=== PATIENT | female | born 1945 | race Caucasian/White ===

== ENCOUNTER 2017-04-23 22:59 | Emergency (ER) | payer MEDICARE, MEDICAID ==
[~2017-04-23] VITALS: Ht 154.9 cm; Wt 45.5 kg
[~2017-04-23 22:59] MED LIST: HALO10 PO
[2017-04-23 23:17] LABS: GLUCOSE,POINT OF CARE 91 MG/DL (70-110)
[2017-04-23 23:48] LABS: BASOPHILS % (AUTO) 0.6 % (0.0-2.0); EOSINOPHILS % (AUTO) 0 % (1.0-6.0); HEMATOCRIT 34.7 % (36-46); HEMOGLOBIN 11.2 g/dL (12.0-16.0); LYMPHOCYTES # (AUTO) 1.5 K/uL (1.0-4.8); MEAN CORPUSCULAR HEMOGLOBIN 24.1 pg (26.0-34.0); MEAN CORPUSCULAR HGB CONC 32.4 G/dL (31.0-37.0); MEAN CORPUSCULAR VOLUME 74 fL (80-100); MONOCYTES # (AUTO) 0.5 K/uL (0.1-1.0); NEUTROPHILS # (AUTO) 11.6 K/uL (1.8-7.7); NEUTROPHILS % (AUTO) 84.4 % (40.0-70.0); PLATELET COUNT (AUTO) 405 K/uL (150-450); RED BLOOD CELL COUNT(AUTO) 4.67 MIL/uL (4.00-5.20); RED CELL DISTRIBUTION WIDTH 26.2 % (11.5-14.5); WHITE BLOOD COUNT (AUTO) 13.8 K/uL (4.5-11.0)
[2017-04-23 23:50] LABS: ANION GAP 8 mmol/L (8-16); CALCIUM, TOTAL 9.1 mg/dL (8.8-10.5); CARBON DIOXIDE 30 mmol/L (22-29); CHLORIDE 103 mmol/L (98-107); CREATININE 0.77 mg/dL (0.60-1.30); GLOMERULAR FILTR. RATE CALC > 60 mL/min (>60); POTASSIUM 3.3 mmol/L (3.5-5.1); SODIUM SERUM 141 mmol/L (136-145); UREA NITROGEN, BLOOD 13 mg/dL (7-18)
[2017-04-24] MEDS ORDERED: ONDANSETRON HCL 4 MG/2 ML VIAL IVP ONE
[2017-04-24] MEDS ORDERED: SODIUM CHLORIDE 0.9% 1,000 ML IV ONE
[2017-04-24] MEDS ORDERED: MAG HYDROX/AL HYDROX/SIMETH ES 30 ML SUSPENSION UDCUP PO ONE
[2017-04-24] MEDS ORDERED: ACETAMINOPHEN 500 MG TABLET PO ONE
[2017-04-24 00:15] LABS: ALANINE AMINOTRANSFERASE 27 U/L (12-78); ALBUMIN 3.7 g/dL (3.4-5.0); ASPARTATE AMINOTRANSFERASE 25 U/L (15-37); BILIRUBIN,TOTAL 0.7 mg/dL (0.1-1.0); CREATINE KINASE MB 4.5 ng/mL (0-5); CREATINE KINASE, TOTAL 134 U/L (26-192); TOTAL PROTEIN, SERUM 7.3 g/dL (6.4-8.2)
[2017-04-24 00:20] LABS: B-TYPE NATRIURETIC PEPTIDE 60 pg/mL (0-100)
[2017-04-24 01:21] LABS: RBC MORPHOLOGY COMMENT ABNORMAL RBC MORPH
[2017-04-24 02:49] VITALS: BP 101/62
== END 2017-04-24 02:54 | disposition home or self-care (01) ==
LOC: EMS 23:01
DX: T62.8X1A Toxic effect of other specified noxious substances eaten as food, accidental (unintentional), initial encounter (principal); K29.70 Gastritis, unspecified, without bleeding; F20.0 Paranoid schizophrenia; F31.9 Bipolar disorder, unspecified; F17.210 Nicotine dependence, cigarettes, uncomplicated; Z88.0 Allergy status to penicillin; Z88.7 Allergy status to serum and vaccine; Y92.89 Other specified places as the place of occurrence of the external cause
CPT/HCPCS: 36415; 80053; 82550; 82553; 82962; 83690; 83880; 84484; 85025; 93005; 96361; 96374; 99285; 99406; J2405; J7030

== ENCOUNTER 2018-04-13 09:55 | Emergency (ER) | payer MEDICARE, MEDICAID ==
[~2018-04-13] VITALS: Ht 160 cm; Wt 45.5 kg
[2018-04-13 10:24] LABS: GLUCOSE,POINT OF CARE 148 MG/DL (70-110)
[2018-04-13] MEDS ORDERED: SODIUM CHLORIDE 0.9% 1,000 ML IV ONE (11:15)
[2018-04-13] MEDS ORDERED: DIPHENOXYLATE/ATROP 2.5-0.025 MG TABLET PO ONE (11:15)
[2018-04-13] MEDS ORDERED: ONDANSETRON HCL 4 MG/2 ML VIAL IVP ONE ×2 (11:15→14:30)
[2018-04-13] MEDS ORDERED: CIPROFLOXACIN HCL 250 MG TABLET PO ONE (11:15)
[2018-04-13 12:02] LABS: BASOPHILS % (AUTO) 0.4 % (0.0-2.0); EOSINOPHILS % (AUTO) 0 % (1.0-6.0); HEMATOCRIT 30.3 % (36-46); HEMOGLOBIN 9.1 g/dL (12.0-16.0); LYMPHOCYTES # (AUTO) 1.4 K/uL (1.0-4.8); LYMPHOCYTES % (AUTO) 6.9 % (22.0-44.0); MEAN CORPUSCULAR HEMOGLOBIN 19.4 pg (26.0-34.0); MEAN CORPUSCULAR HGB CONC 29.9 G/dL (31.0-37.0); MEAN CORPUSCULAR VOLUME 65 fL (80-100); MONOCYTES # (AUTO) 1.5 K/uL (0.1-1.0); MONOCYTES % (AUTO) 7.4 % (2.0-9.0); NEUTROPHILS # (AUTO) 16.9 K/uL (1.8-7.7); PLATELET COUNT (AUTO) 586 K/uL (150-450); RED BLOOD CELL COUNT(AUTO) 4.67 MIL/uL (4.00-5.20); RED CELL DISTRIBUTION WIDTH 18.4 % (11.5-14.5)
[2018-04-13 12:05] LABS: NEUTROPHILS % (AUTO) 85.3 % (40.0-70.0)
[2018-04-13 12:28] LABS: ANION GAP 10 mmol/L (8-16); CALCIUM, TOTAL 9.1 mg/dL (8.8-10.5); CARBON DIOXIDE 28 mmol/L (22-29); CHLORIDE 97 mmol/L (98-107); CREATININE 0.75 mg/dL (0.60-1.30); GLOMERULAR FILTR. RATE CALC > 60 mL/min (>60); GLUCOSE,RANDOM 119 mg/dL (70-110); POTASSIUM 3.4 mmol/L (3.5-5.1); SODIUM SERUM 135 mmol/L (136-145); UREA NITROGEN, BLOOD 21 mg/dL (7-18)
[2018-04-13 12:34] LABS: ALANINE AMINOTRANSFERASE 12 U/L (12-78); ALBUMIN 3.4 g/dL (3.4-5.0); ALKALINE PHOSPHATASE 86 U/L (46-116); ASPARTATE AMINOTRANSFERASE 13 U/L (15-37); B-TYPE NATRIURETIC PEPTIDE 228 pg/mL (0-100); BILIRUBIN,TOTAL 0.5 mg/dL (0.1-1.0); CREATINE KINASE, TOTAL 27 U/L (26-192); LIPASE 143 U/L (73-393); TOTAL PROTEIN, SERUM 8.1 g/dL (6.4-8.2)
[2018-04-13] MEDS ORDERED: SODIUM CHLORIDE 0.9% 100 ML ONE (13:02)
[2018-04-13] MEDS ORDERED: IOVERSOL 320 MG/ML 100 ML VIAL ONE (13:02)
[2018-04-13] MEDS ORDERED: LORazepam 2 MG/ML VIAL IVP ONE (14:30)
[2018-04-13] MEDS ORDERED: MORPHINE SULFATE 4 MG/ML SYRINGE IVP ONE (14:30)
[2018-04-13 19:33] VITALS: BP 118/60
== END 2018-04-13 20:02 | disposition left against medical advice (07) ==
LOC: EMS 09:59
DX: R10.13 Epigastric pain (principal); F31.9 Bipolar disorder, unspecified; F20.9 Schizophrenia, unspecified; H91.90 Unspecified hearing loss, unspecified ear; F17.210 Nicotine dependence, cigarettes, uncomplicated; Z88.0 Allergy status to penicillin; Z88.8 Allergy status to other drugs, medicaments and biological substances; Z79.899 Other long term (current) drug therapy
CPT/HCPCS: 76705; 80053; 82550; 82962; 83690; 83880; 84484; 85025; 93005; 96374; 96375; 96376; 99285; J2060; J2270; J2405; J7030; J7050; Q9967

== ENCOUNTER 2018-04-23 11:32 | Emergency (ER) | payer MEDICARE, MEDICAID ==
[~2018-04-23] VITALS: Ht 165.1 cm; Wt 54.5 kg
[2018-04-23 13:26] LABS: BASOPHILS % (AUTO) 0.7 % (0.0-2.0); EOSINOPHILS % (AUTO) 1.2 % (1.0-6.0); HEMATOCRIT 28.5 % (36-46); HEMOGLOBIN 8.6 g/dL (12.0-16.0); LYMPHOCYTES # (AUTO) 2.5 K/uL (1.0-4.8); LYMPHOCYTES % (AUTO) 21.2 % (22.0-44.0); MEAN CORPUSCULAR HEMOGLOBIN 20.1 pg (26.0-34.0); MEAN CORPUSCULAR HGB CONC 30.2 G/dL (31.0-37.0); MEAN CORPUSCULAR VOLUME 67 fL (80-100); MONOCYTES # (AUTO) 1.1 K/uL (0.1-1.0); MONOCYTES % (AUTO) 9.2 % (2.0-9.0); NEUTROPHILS # (AUTO) 7.8 K/uL (1.8-7.7); NEUTROPHILS % (AUTO) 67.7 % (40.0-70.0); PLATELET COUNT (AUTO) 534 K/uL (150-450); RED BLOOD CELL COUNT(AUTO) 4.29 MIL/uL (4.00-5.20); RED CELL DISTRIBUTION WIDTH 17.9 % (11.5-14.5)
[2018-04-23 13:37] LABS: ANION GAP 6 mmol/L (8-16); CALCIUM, TOTAL 8.6 mg/dL (8.8-10.5); CARBON DIOXIDE 29 mmol/L (22-29); CHLORIDE 106 mmol/L (98-107); CREATININE 0.62 mg/dL (0.60-1.30); GLOMERULAR FILTR. RATE CALC > 60 mL/min (>60); GLUCOSE,RANDOM 95 mg/dL (70-110); POTASSIUM 3.2 mmol/L (3.5-5.1); SODIUM SERUM 141 mmol/L (136-145); UREA NITROGEN, BLOOD 8 mg/dL (7-18)
[2018-04-23 13:40] LABS: PLATELET MORPHOLOGY COMMENT LARGE PLTS PRESENT
[2018-04-23 13:43] LABS: ALANINE AMINOTRANSFERASE 13 U/L (12-78); ALBUMIN 2.6 g/dL (3.4-5.0); ALKALINE PHOSPHATASE 86 U/L (46-116); ASPARTATE AMINOTRANSFERASE 14 U/L (15-37); BILIRUBIN,TOTAL 0.2 mg/dL (0.1-1.0); LIPASE 249 U/L (73-393); TOTAL PROTEIN, SERUM 6.6 g/dL (6.4-8.2)
[2018-04-23] MEDS ORDERED: POTASSIUM CHLORIDE 20 MEQ ER TABLET PO ONE (15:15)
[2018-04-23 16:00] VITALS: BP 139/73
== END 2018-04-23 16:19 | disposition home or self-care (01) ==
LOC: EMS 11:33
DX: F20.9 Schizophrenia, unspecified (principal); E87.6 Hypokalemia; R10.84 Generalized abdominal pain; F31.9 Bipolar disorder, unspecified; F41.9 Anxiety disorder, unspecified; F17.210 Nicotine dependence, cigarettes, uncomplicated; Z88.0 Allergy status to penicillin; Z88.8 Allergy status to other drugs, medicaments and biological substances
CPT/HCPCS: 36415; 80053; 83690; 84484; 85025; 93005; 99285; 99406; G0480

== ENCOUNTER 2018-05-10 22:34 | Emergency (ER) | payer MEDICARE, MEDICAID ==
[~2018-05-10] VITALS: Ht 165.1 cm; Wt 54.2 kg
[2018-05-10 23:58] VITALS: BP 134/66
== END 2018-05-11 00:29 | disposition home or self-care (01) ==
LOC: EMS 22:35
DX: F31.9 Bipolar disorder, unspecified (principal); F20.9 Schizophrenia, unspecified; F17.210 Nicotine dependence, cigarettes, uncomplicated; Z88.7 Allergy status to serum and vaccine; Z88.0 Allergy status to penicillin; Z91.14 Patient's other noncompliance with medication regimen
CPT/HCPCS: 99284

== ENCOUNTER 2018-07-13 20:27 | Inpatient (IN) | payer MEDICARE, MEDICAID ==
[~2018-07-13] VITALS: Ht 157.5 cm; Wt 49.0 kg
[2018-07-13 21:29] LABS: GLUCOSE,POINT OF CARE 123 MG/DL (70-110)
[2018-07-13 21:35] LABS: BASOPHILS % (AUTO) 1.2 % (0.0-2.0); EOSINOPHILS % (AUTO) 0.8 % (1.0-6.0); HEMATOCRIT 27.3 % (36-46); HEMOGLOBIN 8.4 g/dL (12.0-16.0); LYMPHOCYTES # (AUTO) 2.4 K/uL (1.0-4.8); LYMPHOCYTES % (AUTO) 17.7 % (22.0-44.0); MEAN CORPUSCULAR HEMOGLOBIN 21.1 pg (26.0-34.0); MEAN CORPUSCULAR HGB CONC 30.8 G/dL (31.0-37.0); MEAN CORPUSCULAR VOLUME 69 fL (80-100); MONOCYTES # (AUTO) 0.9 K/uL (0.1-1.0); NEUTROPHILS # (AUTO) 9.9 K/uL (1.8-7.7); NEUTROPHILS % (AUTO) 73.3 % (40.0-70.0); PLATELET COUNT (AUTO) 585 K/uL (150-450); RED BLOOD CELL COUNT(AUTO) 3.97 MIL/uL (4.00-5.20); RED CELL DISTRIBUTION WIDTH 22.4 % (11.5-14.5)
[2018-07-13 21:56] LABS: ANION GAP 7 mmol/L (8-16); CALCIUM, TOTAL 8.1 mg/dL (8.8-10.5); CARBON DIOXIDE 30 mmol/L (22-29); CHLORIDE 102 mmol/L (98-107); GLUCOSE,RANDOM 126 mg/dL (70-110); POTASSIUM 3.1 mmol/L (3.5-5.1); SODIUM SERUM 139 mmol/L (136-145); UREA NITROGEN, BLOOD 15 mg/dL (7-18)
[2018-07-13 21:58] LABS: GLOMERULAR FILTR. RATE CALC > 60 mL/min (>60)
[2018-07-13 22:02] LABS: ALANINE AMINOTRANSFERASE 16 U/L (12-78); ALBUMIN 2.8 g/dL (3.4-5.0); ALKALINE PHOSPHATASE 101 U/L (46-116); ASPARTATE AMINOTRANSFERASE 16 U/L (15-37); BILIRUBIN,TOTAL 0.1 mg/dL (0.1-1.0); TOTAL PROTEIN, SERUM 6.6 g/dL (6.4-8.2)
[2018-07-13] MEDS ORDERED: HALOPERIDOL LACTATE 5 MG/ML VIAL IM ONE (22:45)
[2018-07-13] MEDS ORDERED: LORazepam 2 MG/ML VIAL IM ONE (22:45)
[2018-07-13] MEDS ORDERED: POTASSIUM CHLORIDE 20 MEQ ER TABLET PO ONE (23:00)
[2018-07-14 09:14] VITALS: BP 115/60
[2018-07-14] MEDS ORDERED: ALBUTEROL SULFATE HFA 90 MCG/PUFF 8 GM INHALER IH PRN (10:30)
[2018-07-14] MEDS ORDERED: IBUPROFEN 400 MG TABLET PO PRN ×2 (10:30)
[2018-07-14] MEDS ORDERED: MAG HYDROX/AL HYDROX/SIMETH ES 30 ML SUSPENSION UDCUP PO PRN (10:30)
[2018-07-14] MEDS ORDERED: GuaiFENesin/D-METHORPHAN [SUGAR-FREE] 200-20MG/10 ML SYRUP UDCUP PO PRN (10:30)
[2018-07-14] MEDS ORDERED: PETROLATUM,WHITE 71 GM JELLY TP PRN (10:30)
[2018-07-14] MEDS ORDERED: DOCUSATE SODIUM 100 MG CAPSULE PO PRN (10:30)
[2018-07-14] MEDS ORDERED: NICOTINE 14 MG/24 HOUR PATCH TD PRN (10:30)
[2018-07-14] MEDS ORDERED: CloNIDine HCL 0.1 MG TABLET PO PRN (10:30)
[2018-07-14] MEDS ORDERED: ONDANSETRON HCL 4 MG TABLET PO PRN (10:30)
[2018-07-14] MEDS ORDERED: LOPERAMIDE HCL 2 MG CAPSULE PO PRN (10:30)
[2018-07-14] MEDS ORDERED: ACETAMINOPHEN 325 MG TABLET PO PRN ×2 (10:30)
[2018-07-14] MEDS ORDERED: MAGNESIUM HYDROXIDE SUSPENSION 30 ML UDCUP PO PRN (10:30)
[2018-07-14] MEDS: FERROUS SULFATE 325 MG EC TABLET PO SCH ×3 (12:00→17:00)
[2018-07-14] MEDS: DULoxetine HCL 60 MG CAPSULE PO SCH ×2 (12:15→12:25)
[2018-07-14] MEDS: TRIHEXYPHENIDYL HCL 2 MG TABLET PO SCH ×2 (13:00→17:00)
[2018-07-14] MEDS ORDERED: FERR-89 PO (14:08)
[2018-07-14] MEDS ORDERED: MAG360OR93 PO (14:08)
[2018-07-14] MEDS ORDERED: ONDA4 PO (14:08)
[2018-07-14] MEDS ORDERED: ACET-2247 PO (14:08)
[2018-07-14] MEDS ORDERED: [UNRECOGNIZED DRUG - CODE] PO (14:08)
[2018-07-14] MEDS ORDERED: LOPE2 PO (14:08)
[2018-07-14] MEDS ORDERED: DULO60CA44 PO (14:08)
[2018-07-14] MEDS ORDERED: LORA2TAB2 PO (14:08)
[2018-07-14] MEDS ORDERED: IBUP-1506 PO (14:08)
[2018-07-14] MEDS ORDERED: HALO5TAB2 PO ×2 (14:08)
[2018-07-14] MEDS ORDERED: CLON0.1T PO (14:08)
[2018-07-14] MEDS ORDERED: ALBU8HFA IH (14:08)
[2018-07-14] MEDS ORDERED: MOM30 PO (14:08)
[2018-07-14] MEDS ORDERED: ZOLP10TA7 PO (14:08)
[2018-07-14] MEDS ORDERED: TRIH2TAB3 PO (14:08)
[2018-07-14] MEDS ORDERED: DSS100 PO (14:08)
[2018-07-14 18:05] VITALS: BP 114/66
[2018-07-14] MEDS: HALOPERIDOL 5 MG TABLET PO SCH (21:17)
[2018-07-15] MEDS: FERROUS SULFATE 325 MG EC TABLET PO SCH ×3 (06:58→16:51)
[2018-07-15] MEDS: TRIHEXYPHENIDYL HCL 2 MG TABLET PO SCH ×3 (08:50→16:51)
[2018-07-15] MEDS: DULoxetine HCL 60 MG CAPSULE PO SCH (08:50)
[2018-07-15] MEDS: HALOPERIDOL 5 MG TABLET PO PRN (08:50)
[2018-07-15] MEDS: LORazepam 2 MG TABLET PO PRN (08:50)
[2018-07-15 13:45] VITALS: BP 110/60
[2018-07-15 19:22] VITALS: BP 117/62
[2018-07-15] MEDS: HALOPERIDOL 5 MG TABLET PO SCH (20:36)
[2018-07-16] MEDS: ZOLPIDEM TARTRATE 10 MG TABLET PO PRN (00:51)
[2018-07-16 01:30] VITALS: BP 115/63
[2018-07-16] MEDS: FERROUS SULFATE 325 MG EC TABLET PO SCH ×3 (06:57→17:09)
[2018-07-16] MEDS: TRIHEXYPHENIDYL HCL 2 MG TABLET PO SCH ×3 (08:25→17:09)
[2018-07-16] MEDS: DULoxetine HCL 60 MG CAPSULE PO SCH (08:25)
[2018-07-16] MEDS: LORazepam 2 MG TABLET PO PRN ×2 (08:26→19:54)
[2018-07-16] MEDS: HALOPERIDOL 5 MG TABLET PO PRN (08:26)
[2018-07-16] MEDS ORDERED: LORazepam 2 MG/ML VIAL IM ONE (11:15)
[2018-07-16 11:51] VITALS: BP 116/69
[2018-07-16] MEDS ORDERED: EUCALYPTUS OIL/MENTHOL/CAMPHOR 50 GM OINTMENT TP PRN (13:45)
[2018-07-16 16:32] VITALS: BP 111/61
[2018-07-16] MEDS: AZITHROMYCIN 250 MG TABLET PO SCH (17:09)
[2018-07-17 06:41] VITALS: BP 116/67
[2018-07-17] MEDS: FERROUS SULFATE 325 MG EC TABLET PO SCH ×3 (06:58→17:10)
[2018-07-17 08:15] LABS: BASOPHILS % (AUTO) 0.7 % (0.0-2.0); EOSINOPHILS % (AUTO) 0.1 % (1.0-6.0); HEMATOCRIT 27.6 % (36-46); HEMOGLOBIN 8.6 g/dL (12.0-16.0); LYMPHOCYTES # (AUTO) 1.1 K/uL (1.0-4.8); LYMPHOCYTES % (AUTO) 9.8 % (22.0-44.0); MEAN CORPUSCULAR HEMOGLOBIN 21.4 pg (26.0-34.0); MEAN CORPUSCULAR HGB CONC 31.1 G/dL (31.0-37.0); MEAN CORPUSCULAR VOLUME 69 fL (80-100); MONOCYTES # (AUTO) 0.8 K/uL (0.1-1.0); MONOCYTES % (AUTO) 7.3 % (2.0-9.0); NEUTROPHILS # (AUTO) 9.3 K/uL (1.8-7.7); NEUTROPHILS % (AUTO) 82.1 % (40.0-70.0); PLATELET COUNT (AUTO) 511 K/uL (150-450); RED CELL DISTRIBUTION WIDTH 22.3 % (11.5-14.5)
[2018-07-17 08:26] LABS: HEMOGLOBIN A1C 5.5 % (4.5-6.2)
[2018-07-17 08:39] LABS: CHOL/HDL RATIO 3.1 (3.9-5.7); POTASSIUM 4.9 mmol/L (3.5-5.1); THYROID STIMULATING HORMONE 2.22 uIU/mL (0.36-3.74)
[2018-07-17] MEDS: DULoxetine HCL 60 MG CAPSULE PO SCH (10:01)
[2018-07-17] MEDS: TRIHEXYPHENIDYL HCL 2 MG TABLET PO SCH ×3 (10:01→17:10)
[2018-07-17] MEDS: AZITHROMYCIN 250 MG TABLET PO SCH (10:02)
[2018-07-17] MEDS: LORazepam 2 MG TABLET PO PRN (13:16)
[2018-07-17 16:01] VITALS: BP 126/60
[2018-07-17] MEDS: FLUTICASONE PROPIONATE 50 MCG/SPRAY 16 GM NASAL SPRAY NASAL PRN (21:37)
[2018-07-17] MEDS: ZOLPIDEM TARTRATE 10 MG TABLET PO PRN (21:38)
[2018-07-18] MEDS: FERROUS SULFATE 325 MG EC TABLET PO SCH ×3 (06:33→17:12)
[2018-07-18 08:00] VITALS: BP 101/63
[2018-07-18] MEDS: AZITHROMYCIN 250 MG TABLET PO SCH (08:30)
[2018-07-18] MEDS: HALOPERIDOL 5 MG TABLET PO PRN (08:30)
[2018-07-18] MEDS: LORazepam 2 MG TABLET PO PRN ×2 (08:30→21:06)
[2018-07-18] MEDS: TRIHEXYPHENIDYL HCL 2 MG TABLET PO SCH ×3 (08:30→17:12)
[2018-07-18] MEDS: DULoxetine HCL 60 MG CAPSULE PO SCH (08:31)
[2018-07-18] MEDS: LORATADINE 10 MG TABLET PO SCH (08:31)
[2018-07-19] MEDS: FERROUS SULFATE 325 MG EC TABLET PO SCH ×3 (07:02→16:55)
[2018-07-19 07:32] VITALS: BP 103/62
[2018-07-19] MEDS: TRIHEXYPHENIDYL HCL 2 MG TABLET PO SCH ×3 (08:49→16:55)
[2018-07-19] MEDS: AZITHROMYCIN 250 MG TABLET PO SCH (08:50)
[2018-07-19] MEDS: LORATADINE 10 MG TABLET PO SCH (08:50)
[2018-07-19] MEDS: DULoxetine HCL 60 MG CAPSULE PO SCH (08:50)
[2018-07-19 10:26] VITALS: BP 108/64
[2018-07-19 16:08] VITALS: BP 125/67
[2018-07-19] MEDS: LORazepam 2 MG TABLET PO PRN (16:55)
[2018-07-19] MEDS: ZOLPIDEM TARTRATE 10 MG TABLET PO PRN (21:23)
[2018-07-20] MEDS: FERROUS SULFATE 325 MG EC TABLET PO SCH ×3 (06:26→16:27)
[2018-07-20 07:19] VITALS: BP 118/62
[2018-07-20] MEDS: AZITHROMYCIN 250 MG TABLET PO SCH (09:10)
[2018-07-20] MEDS: DULoxetine HCL 60 MG CAPSULE PO SCH (09:11)
[2018-07-20] MEDS: LORATADINE 10 MG TABLET PO SCH (09:11)
[2018-07-20] MEDS: TRIHEXYPHENIDYL HCL 2 MG TABLET PO SCH ×3 (09:48→16:27)
[2018-07-20] MEDS: GuaiFENesin/D-METHORPHAN/PHENYLEPH 5 ML LIQUID ORAL.SYG PO PRN (10:00)
[2018-07-20 16:21] VITALS: BP 109/66
[2018-07-20] MEDS: LORazepam 1 MG TABLET PO SCH (16:28)
[2018-07-20] MEDS: HALOPERIDOL 5 MG TABLET PO PRN (16:28)
[2018-07-20] MEDS: ZOLPIDEM TARTRATE 10 MG TABLET PO PRN (21:11)
[2018-07-21 06:20] VITALS: BP 112/65
[2018-07-21] MEDS: FERROUS SULFATE 325 MG EC TABLET PO SCH ×3 (06:40→17:18)
[2018-07-21] MEDS: LORATADINE 10 MG TABLET PO SCH (08:12)
[2018-07-21] MEDS: LORazepam 1 MG TABLET PO SCH ×2 (08:12→17:18)
[2018-07-21] MEDS: AZITHROMYCIN 250 MG TABLET PO SCH (08:12)
[2018-07-21] MEDS: TRIHEXYPHENIDYL HCL 2 MG TABLET PO SCH ×3 (08:12→17:18)
[2018-07-21] MEDS: DULoxetine HCL 60 MG CAPSULE PO SCH (08:12)
[2018-07-21] MEDS: GuaiFENesin/D-METHORPHAN/PHENYLEPH 5 ML LIQUID ORAL.SYG PO PRN (08:25)
[2018-07-21 08:32] VITALS: BP 115/61
[2018-07-21] MEDS: FLUTICASONE PROPIONATE 50 MCG/SPRAY 16 GM NASAL SPRAY NASAL PRN (09:58)
[2018-07-21] MEDS: CIPROFLOXACIN HCL 0.3% 3.5 GM OPHTHALMIC OINTMENT OU SCH ×2 (10:00→17:17)
[2018-07-21] MEDS ORDERED: LORATADINE 10 MG TABLET PO SCH (10:00)
[2018-07-21] MEDS: FLUTICASONE PROPIONATE 50 MCG/SPRAY 16 GM NASAL SPRAY NASAL SCH ×2 (10:19→17:17)
[2018-07-21 16:51] VITALS: BP 111/70
[2018-07-21] MEDS: ZOLPIDEM TARTRATE 10 MG TABLET PO PRN (20:46)
[2018-07-22] MEDS: FERROUS SULFATE 325 MG EC TABLET PO SCH ×3 (06:44→16:45)
[2018-07-22 06:50] VITALS: BP 104/68
[2018-07-22 08:40] VITALS: BP 127/69
[2018-07-22] MEDS: FLUTICASONE PROPIONATE 50 MCG/SPRAY 16 GM NASAL SPRAY NASAL SCH ×2 (09:20→16:45)
[2018-07-22] MEDS: CIPROFLOXACIN HCL 0.3% 3.5 GM OPHTHALMIC OINTMENT OU SCH ×2 (09:20→16:45)
[2018-07-22] MEDS: LORazepam 1 MG TABLET PO SCH ×2 (09:20→16:45)
[2018-07-22] MEDS: DULoxetine HCL 60 MG CAPSULE PO SCH (09:20)
[2018-07-22] MEDS: LORATADINE 10 MG TABLET PO SCH (09:20)
[2018-07-22] MEDS: TRIHEXYPHENIDYL HCL 2 MG TABLET PO SCH ×3 (09:20→16:45)
[2018-07-22] MEDS: HALOPERIDOL 5 MG TABLET PO PRN ×2 (09:21→16:45)
[2018-07-22 16:00] VITALS: BP 111/65
[2018-07-23 01:30] VITALS: BP 118/72
[2018-07-23] MEDS: LORazepam 2 MG TABLET PO PRN (01:38)
[2018-07-23] MEDS: FERROUS SULFATE 325 MG EC TABLET PO SCH ×3 (07:09→16:49)
[2018-07-23 08:01] VITALS: BP 116/70
[2018-07-23] MEDS: DULoxetine HCL 60 MG CAPSULE PO SCH (08:35)
[2018-07-23] MEDS: TRIHEXYPHENIDYL HCL 2 MG TABLET PO SCH ×3 (08:35→16:49)
[2018-07-23] MEDS: FLUTICASONE PROPIONATE 50 MCG/SPRAY 16 GM NASAL SPRAY NASAL SCH ×2 (08:35→16:51)
[2018-07-23] MEDS: CIPROFLOXACIN HCL 0.3% 3.5 GM OPHTHALMIC OINTMENT OU SCH ×2 (08:36→16:51)
[2018-07-23] MEDS: LORazepam 1 MG TABLET PO SCH ×2 (08:36→16:49)
[2018-07-23] MEDS: LORATADINE 10 MG TABLET PO SCH (08:36)
[2018-07-23 16:14] VITALS: BP 117/73
[2018-07-24 05:14] VITALS: BP 98/62
[2018-07-24] MEDS: FERROUS SULFATE 325 MG EC TABLET PO SCH ×3 (07:10→16:24)
[2018-07-24] MEDS: FLUTICASONE PROPIONATE 50 MCG/SPRAY 16 GM NASAL SPRAY NASAL SCH ×2 (09:42→16:25)
[2018-07-24] MEDS: CIPROFLOXACIN HCL 0.3% 3.5 GM OPHTHALMIC OINTMENT OU SCH ×2 (09:42→16:25)
[2018-07-24] MEDS: LORazepam 1 MG TABLET PO SCH ×2 (09:42→16:27)
[2018-07-24] MEDS: TRIHEXYPHENIDYL HCL 2 MG TABLET PO SCH ×3 (09:42→16:24)
[2018-07-24] MEDS: DULoxetine HCL 60 MG CAPSULE PO SCH (09:42)
[2018-07-24] MEDS: LORATADINE 10 MG TABLET PO SCH (09:42)
[2018-07-24 16:20] VITALS: BP 123/75
[2018-07-25 01:30] VITALS: BP 116/74
[2018-07-25] MEDS: FERROUS SULFATE 325 MG EC TABLET PO SCH ×3 (06:32→16:44)
[2018-07-25 09:08] VITALS: BP 100/62
[2018-07-25] MEDS: LORazepam 1 MG TABLET PO SCH ×2 (09:46→16:44)
[2018-07-25] MEDS: DULoxetine HCL 60 MG CAPSULE PO SCH (09:46)
[2018-07-25] MEDS: TRIHEXYPHENIDYL HCL 2 MG TABLET PO SCH ×3 (09:46→16:44)
[2018-07-25] MEDS: LORATADINE 10 MG TABLET PO SCH (09:46)
[2018-07-25] MEDS: FLUTICASONE PROPIONATE 50 MCG/SPRAY 16 GM NASAL SPRAY NASAL SCH ×2 (09:47→16:45)
[2018-07-25] MEDS: CIPROFLOXACIN HCL 0.3% 3.5 GM OPHTHALMIC OINTMENT OU SCH ×2 (09:47→16:45)
[2018-07-25 16:00] VITALS: BP 127/60
[2018-07-26 00:21] VITALS: BP 120/60
[2018-07-26] MEDS: LORazepam 2 MG TABLET PO PRN ×2 (03:53→03:56)
[2018-07-26] MEDS: FERROUS SULFATE 325 MG EC TABLET PO SCH ×3 (07:00→16:21)
[2018-07-26 08:24] VITALS: BP 114/61
[2018-07-26] MEDS: DULoxetine HCL 60 MG CAPSULE PO SCH (08:46)
[2018-07-26] MEDS: LORATADINE 10 MG TABLET PO SCH (08:46)
[2018-07-26] MEDS: FLUTICASONE PROPIONATE 50 MCG/SPRAY 16 GM NASAL SPRAY NASAL SCH ×2 (08:46→16:22)
[2018-07-26] MEDS: LORazepam 1 MG TABLET PO SCH ×2 (08:46→16:21)
[2018-07-26] MEDS: TRIHEXYPHENIDYL HCL 2 MG TABLET PO SCH ×3 (08:46→16:21)
[2018-07-26] MEDS: CIPROFLOXACIN HCL 0.3% 3.5 GM OPHTHALMIC OINTMENT OU SCH ×2 (09:00→16:22)
[2018-07-26 16:21] VITALS: BP 133/59
[2018-07-27 01:50] VITALS: BP 118/66
[2018-07-27] MEDS: LORazepam 2 MG TABLET PO PRN (02:10)
[2018-07-27] MEDS: FERROUS SULFATE 325 MG EC TABLET PO SCH ×3 (06:47→17:23)
[2018-07-27 08:33] VITALS: BP 108/65
[2018-07-27] MEDS: LORazepam 1 MG TABLET PO SCH ×2 (09:08→17:23)
[2018-07-27] MEDS: TRIHEXYPHENIDYL HCL 2 MG TABLET PO SCH ×3 (09:08→17:22)
[2018-07-27] MEDS: DULoxetine HCL 60 MG CAPSULE PO SCH (09:08)
[2018-07-27] MEDS: LORATADINE 10 MG TABLET PO SCH (09:08)
[2018-07-27] MEDS: FLUTICASONE PROPIONATE 50 MCG/SPRAY 16 GM NASAL SPRAY NASAL SCH ×2 (09:09→17:24)
[2018-07-27] MEDS: CIPROFLOXACIN HCL 0.3% 3.5 GM OPHTHALMIC OINTMENT OU SCH ×2 (09:09→17:23)
[2018-07-27 16:08] VITALS: BP 118/61
[2018-07-28 05:30] VITALS: BP 112/64
[2018-07-28] MEDS: FERROUS SULFATE 325 MG EC TABLET PO SCH ×3 (06:58→16:10)
[2018-07-28] MEDS: LORazepam 1 MG TABLET PO SCH ×2 (08:28→16:10)
[2018-07-28] MEDS: TRIHEXYPHENIDYL HCL 2 MG TABLET PO SCH ×3 (08:28→16:10)
[2018-07-28 08:29] VITALS: BP 116/70
[2018-07-28] MEDS: FLUTICASONE PROPIONATE 50 MCG/SPRAY 16 GM NASAL SPRAY NASAL SCH ×2 (08:29→16:11)
[2018-07-28] MEDS: DULoxetine HCL 60 MG CAPSULE PO SCH (08:29)
[2018-07-28] MEDS: LORATADINE 10 MG TABLET PO SCH (08:29)
[2018-07-28] MEDS: CIPROFLOXACIN HCL 0.3% 3.5 GM OPHTHALMIC OINTMENT OU SCH ×2 (08:30→16:10)
[2018-07-28 16:00] VITALS: BP 145/71
[2018-07-29 00:16] VITALS: BP 123/78
[2018-07-29] MEDS: ZOLPIDEM TARTRATE 10 MG TABLET PO PRN (00:23)
[2018-07-29] MEDS: FERROUS SULFATE 325 MG EC TABLET PO SCH ×3 (06:42→16:26)
[2018-07-29 08:22] VITALS: BP 100/42
[2018-07-29] MEDS: CIPROFLOXACIN HCL 0.3% 3.5 GM OPHTHALMIC OINTMENT OU SCH ×2 (09:52→16:26)
[2018-07-29] MEDS: DULoxetine HCL 60 MG CAPSULE PO SCH (09:52)
[2018-07-29] MEDS: FLUTICASONE PROPIONATE 50 MCG/SPRAY 16 GM NASAL SPRAY NASAL SCH ×2 (09:52→16:27)
[2018-07-29] MEDS: LORazepam 1 MG TABLET PO SCH ×2 (09:52→16:26)
[2018-07-29] MEDS: LORATADINE 10 MG TABLET PO SCH (09:52)
[2018-07-29] MEDS: TRIHEXYPHENIDYL HCL 2 MG TABLET PO SCH ×3 (09:52→16:26)
[2018-07-29 11:59] VITALS: BP 102/60
[2018-07-29] MEDS: LORazepam 2 MG TABLET PO PRN (12:13)
[2018-07-29 16:30] VITALS: BP 118/74
[2018-07-30 06:00] VITALS: BP 120/81
[2018-07-30] MEDS: FERROUS SULFATE 325 MG EC TABLET PO SCH ×3 (07:08→16:50)
[2018-07-30 08:18] VITALS: BP 105/61
[2018-07-30] MEDS: LORATADINE 10 MG TABLET PO SCH (09:19)
[2018-07-30] MEDS: DULoxetine HCL 60 MG CAPSULE PO SCH (09:19)
[2018-07-30] MEDS: LORazepam 1 MG TABLET PO SCH ×2 (09:19→16:51)
[2018-07-30] MEDS: TRIHEXYPHENIDYL HCL 2 MG TABLET PO SCH ×3 (09:19→16:51)
[2018-07-30] MEDS: FLUTICASONE PROPIONATE 50 MCG/SPRAY 16 GM NASAL SPRAY NASAL SCH ×2 (09:20→16:51)
[2018-07-30] MEDS: CIPROFLOXACIN HCL 0.3% 3.5 GM OPHTHALMIC OINTMENT OU SCH ×2 (09:20→16:51)
[2018-07-30 16:32] VITALS: BP 108/64
[2018-07-30] MEDS: LORazepam 2 MG TABLET PO PRN (19:09)
[2018-07-31] MEDS: FERROUS SULFATE 325 MG EC TABLET PO SCH ×3 (07:02→17:20)
[2018-07-31 08:15] VITALS: BP 99/63
[2018-07-31 09:40] VITALS: BP 129/82
[2018-07-31] MEDS: TRIHEXYPHENIDYL HCL 2 MG TABLET PO SCH ×3 (09:43→17:21)
[2018-07-31] MEDS: LORATADINE 10 MG TABLET PO SCH (09:43)
[2018-07-31] MEDS: LORazepam 1 MG TABLET PO SCH ×2 (09:43→17:20)
[2018-07-31] MEDS: DULoxetine HCL 60 MG CAPSULE PO SCH (09:43)
[2018-07-31] MEDS: CIPROFLOXACIN HCL 0.3% 3.5 GM OPHTHALMIC OINTMENT OU SCH (09:44)
[2018-07-31] MEDS: FLUTICASONE PROPIONATE 50 MCG/SPRAY 16 GM NASAL SPRAY NASAL SCH ×2 (09:44→17:21)
[2018-07-31 16:00] VITALS: BP 121/84
[2018-08-01 04:00] VITALS: BP 112/72
[2018-08-01] MEDS: LORazepam 2 MG TABLET PO PRN (04:13)
[2018-08-01] MEDS: FERROUS SULFATE 325 MG EC TABLET PO SCH ×3 (07:08→17:16)
[2018-08-01 08:33] VITALS: BP 113/64
[2018-08-01] MEDS: LORazepam 1 MG TABLET PO SCH ×2 (09:07→17:16)
[2018-08-01] MEDS: LORATADINE 10 MG TABLET PO SCH (09:07)
[2018-08-01] MEDS: DULoxetine HCL 60 MG CAPSULE PO SCH (09:07)
[2018-08-01] MEDS: TRIHEXYPHENIDYL HCL 2 MG TABLET PO SCH ×3 (09:07→17:16)
[2018-08-01] MEDS: FLUTICASONE PROPIONATE 50 MCG/SPRAY 16 GM NASAL SPRAY NASAL SCH ×2 (09:08→17:16)
[2018-08-01 16:19] VITALS: BP 114/66
[2018-08-02 05:55] VITALS: BP 112/70
[2018-08-02] MEDS: FERROUS SULFATE 325 MG EC TABLET PO SCH ×3 (06:41→17:17)
[2018-08-02] MEDS: LORATADINE 10 MG TABLET PO SCH (09:05)
[2018-08-02] MEDS: LORazepam 1 MG TABLET PO SCH ×2 (09:05→17:17)
[2018-08-02] MEDS: TRIHEXYPHENIDYL HCL 2 MG TABLET PO SCH ×3 (09:05→17:17)
[2018-08-02] MEDS: FLUTICASONE PROPIONATE 50 MCG/SPRAY 16 GM NASAL SPRAY NASAL SCH ×2 (09:05→17:18)
[2018-08-02] MEDS: DULoxetine HCL 60 MG CAPSULE PO SCH (09:05)
[2018-08-02 09:29] VITALS: BP 124/63
[2018-08-02 16:21] VITALS: BP 121/64
[2018-08-02] MEDS: HYPROMELLOSE 0.5% 15 ML OPHTHALMIC SOLUTION OU SCH (17:18)
[2018-08-03] MEDS: FERROUS SULFATE 325 MG EC TABLET PO SCH ×3 (06:21→16:20)
[2018-08-03 08:45] VITALS: BP 123/66
[2018-08-03] MEDS: TRIHEXYPHENIDYL HCL 2 MG TABLET PO SCH ×3 (08:49→16:20)
[2018-08-03] MEDS: HYPROMELLOSE 0.5% 15 ML OPHTHALMIC SOLUTION OU SCH ×2 (08:49→16:20)
[2018-08-03] MEDS: DULoxetine HCL 60 MG CAPSULE PO SCH (08:49)
[2018-08-03] MEDS: FLUTICASONE PROPIONATE 50 MCG/SPRAY 16 GM NASAL SPRAY NASAL SCH ×2 (08:49→16:20)
[2018-08-03] MEDS: LORazepam 1 MG TABLET PO SCH ×2 (08:50→16:20)
[2018-08-03] MEDS: LORATADINE 10 MG TABLET PO SCH (08:50)
[2018-08-03 16:21] VITALS: BP 134/62
[2018-08-04 02:51] VITALS: BP 122/74
[2018-08-04] MEDS: FERROUS SULFATE 325 MG EC TABLET PO SCH ×3 (06:32→16:00)
[2018-08-04] MEDS: FLUTICASONE PROPIONATE 50 MCG/SPRAY 16 GM NASAL SPRAY NASAL SCH ×2 (08:08→16:01)
[2018-08-04] MEDS: DULoxetine HCL 60 MG CAPSULE PO SCH (08:09)
[2018-08-04] MEDS: TRIHEXYPHENIDYL HCL 2 MG TABLET PO SCH ×3 (08:09→16:00)
[2018-08-04] MEDS: LORazepam 1 MG TABLET PO SCH ×2 (08:09→16:00)
[2018-08-04] MEDS: LORATADINE 10 MG TABLET PO SCH (08:09)
[2018-08-04] MEDS: HYPROMELLOSE 0.5% 15 ML OPHTHALMIC SOLUTION OU SCH ×2 (08:13→16:01)
[2018-08-04 08:31] VITALS: BP 107/55
[2018-08-04 16:13] VITALS: BP 124/61
[2018-08-05 01:46] VITALS: BP 118/70
[2018-08-05] MEDS: FERROUS SULFATE 325 MG EC TABLET PO SCH ×3 (06:57→16:21)
[2018-08-05 07:52] LABS: BASOPHILS % (AUTO) 1.2 % (0.0-2.0); EOSINOPHILS % (AUTO) 1.1 % (1.0-6.0); HEMATOCRIT 34.5 % (36-46); HEMOGLOBIN 11.3 g/dL (12.0-16.0); LYMPHOCYTES % (AUTO) 21.5 % (22.0-44.0); MEAN CORPUSCULAR HEMOGLOBIN 24.4 pg (26.0-34.0); MEAN CORPUSCULAR HGB CONC 32.7 G/dL (31.0-37.0); MEAN CORPUSCULAR VOLUME 75 fL (80-100); MONOCYTES # (AUTO) 0.9 K/uL (0.1-1.0); NEUTROPHILS # (AUTO) 6.1 K/uL (1.8-7.7); NEUTROPHILS % (AUTO) 66.2 % (40.0-70.0); PLATELET COUNT (AUTO) 455 K/uL (150-450); RED BLOOD CELL COUNT(AUTO) 4.62 MIL/uL (4.00-5.20); RED CELL DISTRIBUTION WIDTH 25.6 % (11.5-14.5)
[2018-08-05 08:06] LABS: ANION GAP 2 mmol/L (8-16); CALCIUM, TOTAL 8.9 mg/dL (8.8-10.5); CARBON DIOXIDE 33 mmol/L (22-29); CHLORIDE 101 mmol/L (98-107); CREATININE 0.66 mg/dL (0.60-1.30); GLUCOSE,RANDOM 92 mg/dL (70-110); POTASSIUM 4.2 mmol/L (3.5-5.1); SODIUM SERUM 136 mmol/L (136-145); UREA NITROGEN, BLOOD 18 mg/dL (7-18)
[2018-08-05 08:09] LABS: GLOMERULAR FILTR. RATE CALC > 60 mL/min (>60)
[2018-08-05 08:33] VITALS: BP 109/88
[2018-08-05] MEDS: TRIHEXYPHENIDYL HCL 2 MG TABLET PO SCH ×3 (08:34→16:21)
[2018-08-05] MEDS: LORazepam 1 MG TABLET PO SCH ×2 (08:34→16:21)
[2018-08-05] MEDS: LORATADINE 10 MG TABLET PO SCH (08:34)
[2018-08-05] MEDS: DULoxetine HCL 60 MG CAPSULE PO SCH (08:34)
[2018-08-05] MEDS: HYPROMELLOSE 0.5% 15 ML OPHTHALMIC SOLUTION OU SCH ×2 (08:35→17:00)
[2018-08-05] MEDS: FLUTICASONE PROPIONATE 50 MCG/SPRAY 16 GM NASAL SPRAY NASAL SCH ×2 (08:35→21:44)
[2018-08-05 16:21] VITALS: BP 115/67
[2018-08-06 00:10] VITALS: BP 111/63
[2018-08-06] MEDS: FERROUS SULFATE 325 MG EC TABLET PO SCH ×3 (06:37→17:44)
[2018-08-06 08:29] VITALS: BP 111/60
[2018-08-06] MEDS: LORATADINE 10 MG TABLET PO SCH (08:40)
[2018-08-06] MEDS: LORazepam 1 MG TABLET PO SCH ×2 (08:40→17:43)
[2018-08-06] MEDS: DULoxetine HCL 60 MG CAPSULE PO SCH (08:40)
[2018-08-06] MEDS: TRIHEXYPHENIDYL HCL 2 MG TABLET PO SCH ×3 (08:40→17:43)
[2018-08-06] MEDS: FLUTICASONE PROPIONATE 50 MCG/SPRAY 16 GM NASAL SPRAY NASAL SCH ×2 (08:42→17:43)
[2018-08-06] MEDS: HYPROMELLOSE 0.5% 15 ML OPHTHALMIC SOLUTION OU SCH ×2 (08:42→17:43)
[2018-08-06 16:24] VITALS: BP 127/60
[2018-08-07 06:22] VITALS: BP 118/65
[2018-08-07] MEDS: FERROUS SULFATE 325 MG EC TABLET PO SCH ×3 (06:50→16:45)
[2018-08-07 08:16] VITALS: BP 125/66
[2018-08-07] MEDS: FLUTICASONE PROPIONATE 50 MCG/SPRAY 16 GM NASAL SPRAY NASAL SCH ×2 (09:00→16:46)
[2018-08-07] MEDS: HYPROMELLOSE 0.5% 15 ML OPHTHALMIC SOLUTION OU SCH ×2 (09:00→16:46)
[2018-08-07] MEDS: LORATADINE 10 MG TABLET PO SCH (09:08)
[2018-08-07] MEDS: TRIHEXYPHENIDYL HCL 2 MG TABLET PO SCH ×3 (09:08→16:45)
[2018-08-07] MEDS: LORazepam 1 MG TABLET PO SCH ×2 (09:09→16:45)
[2018-08-07] MEDS: DULoxetine HCL 60 MG CAPSULE PO SCH (09:09)
[2018-08-07 16:26] VITALS: BP 128/66
[2018-08-07] MEDS: ZOLPIDEM TARTRATE 10 MG TABLET PO PRN (22:44)
[2018-08-08 05:58] VITALS: BP 118/74
[2018-08-08] MEDS: FERROUS SULFATE 325 MG EC TABLET PO SCH ×3 (07:12→17:43)
[2018-08-08 08:22] VITALS: BP 106/61
[2018-08-08] MEDS: LORazepam 1 MG TABLET PO SCH ×2 (08:46→17:43)
[2018-08-08] MEDS: TRIHEXYPHENIDYL HCL 2 MG TABLET PO SCH ×3 (08:46→17:43)
[2018-08-08] MEDS: DULoxetine HCL 60 MG CAPSULE PO SCH (08:47)
[2018-08-08] MEDS: HYPROMELLOSE 0.5% 15 ML OPHTHALMIC SOLUTION OU SCH ×2 (08:47→18:17)
[2018-08-08] MEDS: LORATADINE 10 MG TABLET PO SCH (08:47)
[2018-08-08] MEDS: FLUTICASONE PROPIONATE 50 MCG/SPRAY 16 GM NASAL SPRAY NASAL SCH ×2 (08:48→17:00)
[2018-08-08 17:00] VITALS: BP 100/61
[2018-08-09 00:55] VITALS: BP 110/60
[2018-08-09] MEDS: FERROUS SULFATE 325 MG EC TABLET PO SCH ×3 (07:02→17:34)
[2018-08-09 08:37] VITALS: BP 109/63
[2018-08-09] MEDS: DULoxetine HCL 60 MG CAPSULE PO SCH (09:13)
[2018-08-09] MEDS: LORazepam 1 MG TABLET PO SCH ×2 (09:13→17:35)
[2018-08-09] MEDS: LORATADINE 10 MG TABLET PO SCH (09:13)
[2018-08-09] MEDS: HYPROMELLOSE 0.5% 15 ML OPHTHALMIC SOLUTION OU SCH ×2 (09:13→17:00)
[2018-08-09] MEDS: TRIHEXYPHENIDYL HCL 2 MG TABLET PO SCH ×3 (09:13→17:35)
[2018-08-09] MEDS: FLUTICASONE PROPIONATE 50 MCG/SPRAY 16 GM NASAL SPRAY NASAL SCH ×2 (09:14→17:00)
[2018-08-09 17:30] VITALS: BP 123/71
[2018-08-10 01:08] VITALS: BP 113/72
[2018-08-10] MEDS: FERROUS SULFATE 325 MG EC TABLET PO SCH ×3 (06:00→16:36)
[2018-08-10] MEDS: DULoxetine HCL 60 MG CAPSULE PO SCH (08:45)
[2018-08-10] MEDS: TRIHEXYPHENIDYL HCL 2 MG TABLET PO SCH ×3 (08:45→16:36)
[2018-08-10] MEDS: LORazepam 1 MG TABLET PO SCH ×2 (08:45→16:36)
[2018-08-10] MEDS: LORATADINE 10 MG TABLET PO SCH (08:45)
[2018-08-10] MEDS: FLUTICASONE PROPIONATE 50 MCG/SPRAY 16 GM NASAL SPRAY NASAL SCH ×2 (09:00→16:36)
[2018-08-10] MEDS: HYPROMELLOSE 0.5% 15 ML OPHTHALMIC SOLUTION OU SCH ×2 (09:00→16:36)
[2018-08-10 16:28] VITALS: BP 119/81
[2018-08-10] MEDS: ZOLPIDEM TARTRATE 10 MG TABLET PO PRN (20:21)
[2018-08-10] MEDS: LORazepam 2 MG TABLET PO PRN (21:18)
[2018-08-10] MEDS: HALOPERIDOL 5 MG TABLET PO PRN (21:18)
[2018-08-11 06:12] VITALS: BP 114/74
[2018-08-11] MEDS: FERROUS SULFATE 325 MG EC TABLET PO SCH ×4 (06:53→16:37)
[2018-08-11 08:50] VITALS: BP 107/66
[2018-08-11] MEDS: LORazepam 1 MG TABLET PO SCH ×2 (09:16→16:37)
[2018-08-11] MEDS: LORATADINE 10 MG TABLET PO SCH (09:16)
[2018-08-11] MEDS: DULoxetine HCL 60 MG CAPSULE PO SCH (09:16)
[2018-08-11] MEDS: TRIHEXYPHENIDYL HCL 2 MG TABLET PO SCH ×4 (09:16→16:37)
[2018-08-11] MEDS: FLUTICASONE PROPIONATE 50 MCG/SPRAY 16 GM NASAL SPRAY NASAL SCH ×2 (09:17→16:38)
[2018-08-11] MEDS: HYPROMELLOSE 0.5% 15 ML OPHTHALMIC SOLUTION OU SCH ×2 (09:18→16:38)
[2018-08-11 09:22] VITALS: BP 107/66
[2018-08-11 17:16] VITALS: BP 107/69
[2018-08-12 01:40] VITALS: BP 109/73
[2018-08-12] MEDS: ZOLPIDEM TARTRATE 10 MG TABLET PO PRN ×2 (01:44→22:16)
[2018-08-12] MEDS: FERROUS SULFATE 325 MG EC TABLET PO SCH ×3 (06:23→16:31)
[2018-08-12 08:51] VITALS: BP 115/67
[2018-08-12] MEDS: FLUTICASONE PROPIONATE 50 MCG/SPRAY 16 GM NASAL SPRAY NASAL SCH ×2 (09:00→16:32)
[2018-08-12] MEDS: HYPROMELLOSE 0.5% 15 ML OPHTHALMIC SOLUTION OU SCH ×2 (09:00→16:37)
[2018-08-12] MEDS: LORATADINE 10 MG TABLET PO SCH (09:20)
[2018-08-12] MEDS: TRIHEXYPHENIDYL HCL 2 MG TABLET PO SCH ×3 (09:20→16:31)
[2018-08-12] MEDS: LORazepam 1 MG TABLET PO SCH ×2 (09:21→16:31)
[2018-08-12] MEDS: DULoxetine HCL 60 MG CAPSULE PO SCH (09:21)
[2018-08-12 16:42] VITALS: BP 120/72
[2018-08-13 00:45] VITALS: BP 132/68
[2018-08-13] MEDS: FERROUS SULFATE 325 MG EC TABLET PO SCH ×3 (06:58→17:14)
[2018-08-13] MEDS: LORazepam 1 MG TABLET PO SCH ×2 (09:00→17:14)
[2018-08-13] MEDS: FLUTICASONE PROPIONATE 50 MCG/SPRAY 16 GM NASAL SPRAY NASAL SCH ×2 (09:00→17:15)
[2018-08-13] MEDS: TRIHEXYPHENIDYL HCL 2 MG TABLET PO SCH ×3 (09:00→17:14)
[2018-08-13] MEDS: LORATADINE 10 MG TABLET PO SCH (09:00)
[2018-08-13] MEDS: DULoxetine HCL 60 MG CAPSULE PO SCH (09:00)
[2018-08-13] MEDS: HYPROMELLOSE 0.5% 15 ML OPHTHALMIC SOLUTION OU SCH ×2 (09:00→18:22)
[2018-08-13 09:22] VITALS: BP 112/71
[2018-08-13 17:42] VITALS: BP 132/70
[2018-08-13] MEDS: FLUTICASONE PROPIONATE 50 MCG/SPRAY 16 GM NASAL SPRAY NASAL PRN (18:25)
[2018-08-13 20:00] VITALS: BP 140/81
[2018-08-14] MEDS: HALOPERIDOL 5 MG TABLET PO PRN (03:38)
[2018-08-14] MEDS: FERROUS SULFATE 325 MG EC TABLET PO SCH ×3 (07:04→16:21)
[2018-08-14] MEDS: FLUTICASONE PROPIONATE 50 MCG/SPRAY 16 GM NASAL SPRAY NASAL SCH ×2 (10:17→16:22)
[2018-08-14] MEDS: HYPROMELLOSE 0.5% 15 ML OPHTHALMIC SOLUTION OU SCH ×2 (10:18→16:21)
[2018-08-14] MEDS: LORATADINE 10 MG TABLET PO SCH (10:18)
[2018-08-14] MEDS: LORazepam 1 MG TABLET PO SCH ×2 (10:18→16:21)
[2018-08-14] MEDS: TRIHEXYPHENIDYL HCL 2 MG TABLET PO SCH ×3 (10:18→16:21)
[2018-08-14] MEDS: DULoxetine HCL 60 MG CAPSULE PO SCH (10:18)
[2018-08-14 11:39] VITALS: BP 137/82
[2018-08-14 19:21] VITALS: BP 105/69
[2018-08-14] MEDS: ZOLPIDEM TARTRATE 10 MG TABLET PO PRN (22:41)
[2018-08-15 01:06] VITALS: BP 141/86
[2018-08-15] MEDS: FERROUS SULFATE 325 MG EC TABLET PO SCH ×3 (06:51→16:30)
[2018-08-15] MEDS: LORazepam 1 MG TABLET PO SCH ×2 (09:00→16:30)
[2018-08-15] MEDS: HYPROMELLOSE 0.5% 15 ML OPHTHALMIC SOLUTION OU SCH ×2 (09:00→16:31)
[2018-08-15] MEDS: FLUTICASONE PROPIONATE 50 MCG/SPRAY 16 GM NASAL SPRAY NASAL SCH ×2 (09:00→16:30)
[2018-08-15] MEDS: LORATADINE 10 MG TABLET PO SCH (10:04)
[2018-08-15] MEDS: DULoxetine HCL 60 MG CAPSULE PO SCH (10:04)
[2018-08-15] MEDS: TRIHEXYPHENIDYL HCL 2 MG TABLET PO SCH ×3 (10:04→16:30)
[2018-08-15 18:04] VITALS: BP 111/64
[2018-08-16] MEDS: FERROUS SULFATE 325 MG EC TABLET PO SCH ×3 (06:36→17:27)
[2018-08-16] MEDS: TRIHEXYPHENIDYL HCL 2 MG TABLET PO SCH ×3 (08:31→17:27)
[2018-08-16] MEDS: DULoxetine HCL 60 MG CAPSULE PO SCH (08:31)
[2018-08-16] MEDS: LORazepam 1 MG TABLET PO SCH ×2 (08:31→17:27)
[2018-08-16] MEDS: LORATADINE 10 MG TABLET PO SCH (08:31)
[2018-08-16] MEDS: HYPROMELLOSE 0.5% 15 ML OPHTHALMIC SOLUTION OU SCH ×2 (09:00→17:27)
[2018-08-16] MEDS: FLUTICASONE PROPIONATE 50 MCG/SPRAY 16 GM NASAL SPRAY NASAL SCH ×2 (09:00→17:27)
[2018-08-16 14:34] VITALS: BP 127/73
[2018-08-16 16:10] VITALS: BP 139/85
[2018-08-17] MEDS: FERROUS SULFATE 325 MG EC TABLET PO SCH ×3 (06:30→17:27)
[2018-08-17] MEDS: FLUTICASONE PROPIONATE 50 MCG/SPRAY 16 GM NASAL SPRAY NASAL SCH ×2 (09:20→17:27)
[2018-08-17] MEDS: LORazepam 1 MG TABLET PO SCH ×2 (09:20→17:27)
[2018-08-17] MEDS: HYPROMELLOSE 0.5% 15 ML OPHTHALMIC SOLUTION OU SCH ×2 (09:20→17:26)
[2018-08-17] MEDS: LORATADINE 10 MG TABLET PO SCH (09:20)
[2018-08-17] MEDS: TRIHEXYPHENIDYL HCL 2 MG TABLET PO SCH ×3 (09:20→17:28)
[2018-08-17] MEDS: DULoxetine HCL 60 MG CAPSULE PO SCH (09:20)
[2018-08-17] MEDS: ZOLPIDEM TARTRATE 10 MG TABLET PO PRN (22:25)
[2018-08-18] MEDS: FERROUS SULFATE 325 MG EC TABLET PO SCH ×3 (06:55→16:38)
[2018-08-18] MEDS: FLUTICASONE PROPIONATE 50 MCG/SPRAY 16 GM NASAL SPRAY NASAL SCH ×2 (09:00→16:39)
[2018-08-18] MEDS: TRIHEXYPHENIDYL HCL 2 MG TABLET PO SCH ×3 (09:00→16:38)
[2018-08-18] MEDS: DULoxetine HCL 60 MG CAPSULE PO SCH (09:00)
[2018-08-18] MEDS: LORATADINE 10 MG TABLET PO SCH (09:00)
[2018-08-18] MEDS: LORazepam 1 MG TABLET PO SCH ×2 (09:00→16:38)
[2018-08-18] MEDS: HYPROMELLOSE 0.5% 15 ML OPHTHALMIC SOLUTION OU SCH ×2 (09:00→16:39)
[2018-08-18 16:30] VITALS: BP 148/74
[2018-08-19 02:29] VITALS: BP 141/85
[2018-08-19] MEDS: FERROUS SULFATE 325 MG EC TABLET PO SCH ×3 (06:47→18:00)
[2018-08-19] MEDS: HYPROMELLOSE 0.5% 15 ML OPHTHALMIC SOLUTION OU SCH ×2 (09:00→18:00)
[2018-08-19] MEDS: TRIHEXYPHENIDYL HCL 2 MG TABLET PO SCH ×3 (09:00→18:00)
[2018-08-19] MEDS: FLUTICASONE PROPIONATE 50 MCG/SPRAY 16 GM NASAL SPRAY NASAL SCH ×2 (09:00→18:00)
[2018-08-19] MEDS: LORazepam 1 MG TABLET PO SCH ×2 (09:00→18:00)
[2018-08-19] MEDS: DULoxetine HCL 60 MG CAPSULE PO SCH (09:00)
[2018-08-19] MEDS: LORATADINE 10 MG TABLET PO SCH (09:00)
[2018-08-19] MEDS: HALOPERIDOL 5 MG TABLET PO PRN (18:00)
[2018-08-19] MEDS: ZOLPIDEM TARTRATE 10 MG TABLET PO PRN (21:24)
[2018-08-20] MEDS: FERROUS SULFATE 325 MG EC TABLET PO SCH ×4 (06:56→18:00)
[2018-08-20] MEDS: FLUTICASONE PROPIONATE 50 MCG/SPRAY 16 GM NASAL SPRAY NASAL SCH ×2 (09:00→18:00)
[2018-08-20] MEDS: HYPROMELLOSE 0.5% 15 ML OPHTHALMIC SOLUTION OU SCH ×2 (09:00→18:00)
[2018-08-20] MEDS: LORATADINE 10 MG TABLET PO SCH (11:29)
[2018-08-20] MEDS: LORazepam 1 MG TABLET PO SCH ×2 (11:29→18:00)
[2018-08-20] MEDS: DULoxetine HCL 60 MG CAPSULE PO SCH (11:29)
[2018-08-20] MEDS: TRIHEXYPHENIDYL HCL 2 MG TABLET PO SCH ×3 (11:30→18:00)
[2018-08-21 00:18] VITALS: BP 135/71
[2018-08-21] MEDS: ZOLPIDEM TARTRATE 10 MG TABLET PO PRN (00:54)
[2018-08-21] MEDS: FERROUS SULFATE 325 MG EC TABLET PO SCH ×3 (07:02→16:43)
[2018-08-21] MEDS: TRIHEXYPHENIDYL HCL 2 MG TABLET PO SCH ×3 (09:00→16:43)
[2018-08-21] MEDS: FLUTICASONE PROPIONATE 50 MCG/SPRAY 16 GM NASAL SPRAY NASAL SCH ×2 (09:00→16:43)
[2018-08-21] MEDS: DULoxetine HCL 60 MG CAPSULE PO SCH (09:00)
[2018-08-21] MEDS: LORATADINE 10 MG TABLET PO SCH (09:00)
[2018-08-21] MEDS: HYPROMELLOSE 0.5% 15 ML OPHTHALMIC SOLUTION OU SCH ×2 (09:00→16:43)
[2018-08-21] MEDS: HALOPERIDOL 5 MG TABLET PO PRN (16:40)
[2018-08-22] MEDS: FERROUS SULFATE 325 MG EC TABLET PO SCH ×3 (06:59→17:28)
[2018-08-22 08:35] VITALS: BP 114/64
[2018-08-22] MEDS: HALOPERIDOL 5 MG TABLET PO PRN (09:06)
[2018-08-22] MEDS: LORATADINE 10 MG TABLET PO SCH (09:06)
[2018-08-22] MEDS: TRIHEXYPHENIDYL HCL 2 MG TABLET PO SCH ×3 (09:06→17:00)
[2018-08-22] MEDS: FLUTICASONE PROPIONATE 50 MCG/SPRAY 16 GM NASAL SPRAY NASAL SCH ×2 (09:07→17:00)
[2018-08-22] MEDS: HYPROMELLOSE 0.5% 15 ML OPHTHALMIC SOLUTION OU SCH ×2 (09:07→17:00)
[2018-08-22] MEDS: DULoxetine HCL 60 MG CAPSULE PO SCH (09:07)
[2018-08-23] MEDS: FERROUS SULFATE 325 MG EC TABLET PO SCH ×3 (06:34→17:13)
[2018-08-23] MEDS: TRIHEXYPHENIDYL HCL 2 MG TABLET PO SCH ×3 (09:00→17:10)
[2018-08-23] MEDS: LORATADINE 10 MG TABLET PO SCH (09:00)
[2018-08-23] MEDS: HYPROMELLOSE 0.5% 15 ML OPHTHALMIC SOLUTION OU SCH ×2 (09:00→17:12)
[2018-08-23] MEDS: FLUTICASONE PROPIONATE 50 MCG/SPRAY 16 GM NASAL SPRAY NASAL SCH ×2 (09:00→17:12)
[2018-08-23] MEDS: DULoxetine HCL 60 MG CAPSULE PO SCH (09:00)
[2018-08-24] MEDS: HALOPERIDOL 5 MG TABLET PO PRN ×2 (03:39→19:47)
[2018-08-24] MEDS: FERROUS SULFATE 325 MG EC TABLET PO SCH ×4 (07:23→19:50)
[2018-08-24] MEDS: TRIHEXYPHENIDYL HCL 2 MG TABLET PO SCH ×4 (08:50→19:46)
[2018-08-24] MEDS: HYPROMELLOSE 0.5% 15 ML OPHTHALMIC SOLUTION OU SCH ×3 (08:50→19:49)
[2018-08-24] MEDS: FLUTICASONE PROPIONATE 50 MCG/SPRAY 16 GM NASAL SPRAY NASAL SCH ×3 (08:50→19:49)
[2018-08-24] MEDS: DULoxetine HCL 60 MG CAPSULE PO SCH (08:50)
[2018-08-24] MEDS: LORATADINE 10 MG TABLET PO SCH (08:50)
[2018-08-25] MEDS: FERROUS SULFATE 325 MG EC TABLET PO SCH ×3 (07:16→17:41)
[2018-08-25] MEDS: TRIHEXYPHENIDYL HCL 2 MG TABLET PO SCH ×3 (08:42→16:10)
[2018-08-25] MEDS: DULoxetine HCL 60 MG CAPSULE PO SCH (08:42)
[2018-08-25] MEDS: FLUTICASONE PROPIONATE 50 MCG/SPRAY 16 GM NASAL SPRAY NASAL SCH ×2 (08:42→16:12)
[2018-08-25] MEDS: LORATADINE 10 MG TABLET PO SCH (08:42)
[2018-08-25] MEDS: HYPROMELLOSE 0.5% 15 ML OPHTHALMIC SOLUTION OU SCH ×2 (08:46→16:12)
[2018-08-25] MEDS: HALOPERIDOL 5 MG TABLET PO PRN (16:11)
[2018-08-25 16:27] VITALS: BP 134/81
[2018-08-26 01:15] VITALS: BP 145/76
[2018-08-26] MEDS: FERROUS SULFATE 325 MG EC TABLET PO SCH ×3 (07:02→17:30)
[2018-08-26] MEDS: FLUTICASONE PROPIONATE 50 MCG/SPRAY 16 GM NASAL SPRAY NASAL SCH ×2 (09:00→17:00)
[2018-08-26] MEDS: LORATADINE 10 MG TABLET PO SCH (09:00)
[2018-08-26] MEDS: HYPROMELLOSE 0.5% 15 ML OPHTHALMIC SOLUTION OU SCH ×2 (09:00→17:00)
[2018-08-26] MEDS: TRIHEXYPHENIDYL HCL 2 MG TABLET PO SCH ×4 (09:00→17:00)
[2018-08-26] MEDS: DULoxetine HCL 60 MG CAPSULE PO SCH (09:00)
[2018-08-27] MEDS: FERROUS SULFATE 325 MG EC TABLET PO SCH ×3 (06:52→17:01)
[2018-08-27] MEDS: TRIHEXYPHENIDYL HCL 2 MG TABLET PO SCH ×4 (09:00→17:01)
[2018-08-27] MEDS: FLUTICASONE PROPIONATE 50 MCG/SPRAY 16 GM NASAL SPRAY NASAL SCH ×2 (09:00→17:00)
[2018-08-27] MEDS: LORATADINE 10 MG TABLET PO SCH ×2 (09:00→13:38)
[2018-08-27] MEDS: HYPROMELLOSE 0.5% 15 ML OPHTHALMIC SOLUTION OU SCH ×2 (09:00→17:00)
[2018-08-27] MEDS: DULoxetine HCL 60 MG CAPSULE PO SCH ×2 (09:00→13:38)
[2018-08-27 17:28] VITALS: BP 132/65
[2018-08-28] MEDS: FERROUS SULFATE 325 MG EC TABLET PO SCH ×3 (07:02→16:29)
[2018-08-28 08:05] VITALS: BP 147/92
[2018-08-28] MEDS: HYPROMELLOSE 0.5% 15 ML OPHTHALMIC SOLUTION OU SCH ×2 (09:00→16:31)
[2018-08-28] MEDS: FLUTICASONE PROPIONATE 50 MCG/SPRAY 16 GM NASAL SPRAY NASAL SCH ×2 (09:00→16:31)
[2018-08-28] MEDS: TRIHEXYPHENIDYL HCL 2 MG TABLET PO SCH ×3 (09:57→16:29)
[2018-08-28] MEDS: DULoxetine HCL 60 MG CAPSULE PO SCH (09:57)
[2018-08-28] MEDS: LORATADINE 10 MG TABLET PO SCH (09:57)
[2018-08-28 16:00] VITALS: BP 136/71
[2018-08-29] MEDS: HALOPERIDOL 5 MG TABLET PO PRN (00:31)
[2018-08-29 00:33] VITALS: BP 136/68
[2018-08-29] MEDS: FERROUS SULFATE 325 MG EC TABLET PO SCH ×3 (07:26→16:59)
[2018-08-29] MEDS: FLUTICASONE PROPIONATE 50 MCG/SPRAY 16 GM NASAL SPRAY NASAL SCH ×2 (09:32→17:02)
[2018-08-29] MEDS: HYPROMELLOSE 0.5% 15 ML OPHTHALMIC SOLUTION OU SCH ×2 (09:33→17:02)
[2018-08-29] MEDS: DULoxetine HCL 60 MG CAPSULE PO SCH (09:33)
[2018-08-29] MEDS: LORATADINE 10 MG TABLET PO SCH (09:33)
[2018-08-29] MEDS: TRIHEXYPHENIDYL HCL 2 MG TABLET PO SCH ×3 (09:34→16:59)
[2018-08-29 18:56] VITALS: BP 126/66
[2018-08-30 00:15] VITALS: BP 131/72
[2018-08-30] MEDS: HALOPERIDOL 5 MG TABLET PO PRN (00:18)
[2018-08-30] MEDS: FERROUS SULFATE 325 MG EC TABLET PO SCH ×4 (06:31→17:29)
[2018-08-30] MEDS: DULoxetine HCL 60 MG CAPSULE PO SCH (09:00)
[2018-08-30] MEDS: FLUTICASONE PROPIONATE 50 MCG/SPRAY 16 GM NASAL SPRAY NASAL SCH ×2 (09:00→17:28)
[2018-08-30] MEDS: HYPROMELLOSE 0.5% 15 ML OPHTHALMIC SOLUTION OU SCH ×2 (09:00→17:28)
[2018-08-30] MEDS: LORATADINE 10 MG TABLET PO SCH (09:00)
[2018-08-30] MEDS: TRIHEXYPHENIDYL HCL 2 MG TABLET PO SCH ×3 (09:00→17:28)
[2018-08-31] MEDS: HALOPERIDOL 5 MG TABLET PO PRN (00:26)
[2018-08-31 00:45] VITALS: BP 120/58
[2018-08-31] MEDS: FERROUS SULFATE 325 MG EC TABLET PO SCH ×3 (06:40→17:08)
[2018-08-31 08:05] VITALS: BP 103/59
[2018-08-31] MEDS: FLUTICASONE PROPIONATE 50 MCG/SPRAY 16 GM NASAL SPRAY NASAL SCH ×2 (09:00→17:10)
[2018-08-31] MEDS: TRIHEXYPHENIDYL HCL 2 MG TABLET PO SCH ×3 (09:00→17:08)
[2018-08-31] MEDS: LORATADINE 10 MG TABLET PO SCH (09:00)
[2018-08-31] MEDS: HYPROMELLOSE 0.5% 15 ML OPHTHALMIC SOLUTION OU SCH ×2 (09:00→17:10)
[2018-08-31] MEDS: DULoxetine HCL 60 MG CAPSULE PO SCH (09:00)
[2018-08-31 15:06] LABS: BASOPHILS % (AUTO) 0.5 % (0.0-2.0); HEMATOCRIT 34.8 % (36-46); LYMPHOCYTES # (AUTO) 1.5 K/uL (1.0-4.8); LYMPHOCYTES % (AUTO) 13.5 % (22.0-44.0); MEAN CORPUSCULAR HEMOGLOBIN 25.3 pg (26.0-34.0); MEAN CORPUSCULAR HGB CONC 31.6 G/dL (31.0-37.0); MEAN CORPUSCULAR VOLUME 80 fL (80-100); MONOCYTES % (AUTO) 8.9 % (2.0-9.0); NEUTROPHILS # (AUTO) 8.4 K/uL (1.8-7.7); NEUTROPHILS % (AUTO) 76.1 % (40.0-70.0); PLATELET COUNT (AUTO) 425 K/uL (150-450); RED BLOOD CELL COUNT(AUTO) 4.34 MIL/uL (4.00-5.20); RED CELL DISTRIBUTION WIDTH 21.7 % (11.5-14.5)
[2018-09-01] MEDS: FERROUS SULFATE 325 MG EC TABLET PO SCH ×3 (06:48→16:31)
[2018-09-01 09:55] VITALS: BP 141/74
[2018-09-01 09:56] VITALS: BP 141/74
[2018-09-01] MEDS: TRIHEXYPHENIDYL HCL 2 MG TABLET PO SCH ×3 (10:58→16:30)
[2018-09-01] MEDS: LORATADINE 10 MG TABLET PO SCH (10:58)
[2018-09-01] MEDS: DULoxetine HCL 60 MG CAPSULE PO SCH (10:58)
[2018-09-01] MEDS: HYPROMELLOSE 0.5% 15 ML OPHTHALMIC SOLUTION OU SCH ×2 (10:58→16:31)
[2018-09-01] MEDS: FLUTICASONE PROPIONATE 50 MCG/SPRAY 16 GM NASAL SPRAY NASAL SCH ×2 (10:58→16:30)
[2018-09-01] MEDS: MUPIROCIN CALCIUM 2% 22 GM OINTMENT NASAL SCH (17:00)
[2018-09-01 22:13] VITALS: BP 147/77
[2018-09-02 04:26] VITALS: BP 136/82
[2018-09-02] MEDS: FERROUS SULFATE 325 MG EC TABLET PO SCH ×3 (06:58→17:50)
[2018-09-02] MEDS: HYPROMELLOSE 0.5% 15 ML OPHTHALMIC SOLUTION OU SCH ×2 (09:00→17:50)
[2018-09-02] MEDS: FLUTICASONE PROPIONATE 50 MCG/SPRAY 16 GM NASAL SPRAY NASAL SCH ×2 (09:00→17:50)
[2018-09-02] MEDS: MUPIROCIN CALCIUM 2% 22 GM OINTMENT NASAL SCH ×2 (09:00→17:00)
[2018-09-02] MEDS: DULoxetine HCL 60 MG CAPSULE PO SCH (10:23)
[2018-09-02] MEDS: LORATADINE 10 MG TABLET PO SCH (10:23)
[2018-09-02] MEDS: TRIHEXYPHENIDYL HCL 2 MG TABLET PO SCH ×3 (10:23→17:50)
[2018-09-02 16:30] VITALS: BP 134/80
[2018-09-03 03:57] VITALS: BP 127/84
[2018-09-03] MEDS: FERROUS SULFATE 325 MG EC TABLET PO SCH ×3 (07:16→17:14)
[2018-09-03] MEDS: MUPIROCIN CALCIUM 2% 22 GM OINTMENT NASAL SCH ×2 (09:00→17:11)
[2018-09-03] MEDS: FLUTICASONE PROPIONATE 50 MCG/SPRAY 16 GM NASAL SPRAY NASAL SCH ×2 (09:00→17:10)
[2018-09-03] MEDS: HYPROMELLOSE 0.5% 15 ML OPHTHALMIC SOLUTION OU SCH ×2 (09:00→17:11)
[2018-09-03] MEDS: DULoxetine HCL 60 MG CAPSULE PO SCH (09:38)
[2018-09-03] MEDS: TRIHEXYPHENIDYL HCL 2 MG TABLET PO SCH ×3 (09:38→17:10)
[2018-09-03] MEDS: LORATADINE 10 MG TABLET PO SCH (09:38)
[2018-09-03 10:03] VITALS: BP 136/73
[2018-09-03 16:59] VITALS: BP 121/64
[2018-09-04 03:20] VITALS: BP 127/71
[2018-09-04] MEDS: FERROUS SULFATE 325 MG EC TABLET PO SCH ×3 (06:45→17:07)
[2018-09-04] MEDS: LORATADINE 10 MG TABLET PO SCH (08:46)
[2018-09-04] MEDS: DULoxetine HCL 60 MG CAPSULE PO SCH (08:46)
[2018-09-04] MEDS: TRIHEXYPHENIDYL HCL 2 MG TABLET PO SCH ×3 (08:47→17:07)
[2018-09-04] MEDS: FLUTICASONE PROPIONATE 50 MCG/SPRAY 16 GM NASAL SPRAY NASAL SCH ×2 (08:50→17:00)
[2018-09-04] MEDS: MUPIROCIN CALCIUM 2% 22 GM OINTMENT NASAL SCH ×2 (08:50→17:00)
[2018-09-04] MEDS: HYPROMELLOSE 0.5% 15 ML OPHTHALMIC SOLUTION OU SCH (08:50)
[2018-09-04 09:58] VITALS: BP 116/54
[2018-09-05] MEDS: FERROUS SULFATE 325 MG EC TABLET PO SCH ×3 (06:39→16:34)
[2018-09-05] MEDS: DULoxetine HCL 60 MG CAPSULE PO SCH (09:00)
[2018-09-05] MEDS: FLUTICASONE PROPIONATE 50 MCG/SPRAY 16 GM NASAL SPRAY NASAL SCH ×2 (09:00→16:33)
[2018-09-05] MEDS: TRIHEXYPHENIDYL HCL 2 MG TABLET PO SCH ×3 (09:00→16:34)
[2018-09-05] MEDS: MUPIROCIN CALCIUM 2% 22 GM OINTMENT NASAL SCH ×2 (09:00→16:33)
[2018-09-05] MEDS: LORATADINE 10 MG TABLET PO SCH (09:00)
[2018-09-06] MEDS: FERROUS SULFATE 325 MG EC TABLET PO SCH ×3 (07:05→16:12)
[2018-09-06] MEDS: FLUTICASONE PROPIONATE 50 MCG/SPRAY 16 GM NASAL SPRAY NASAL SCH ×3 (09:00→16:08)
[2018-09-06] MEDS: DULoxetine HCL 60 MG CAPSULE PO SCH ×2 (09:00→10:25)
[2018-09-06] MEDS: MUPIROCIN CALCIUM 2% 22 GM OINTMENT NASAL SCH ×2 (09:00→10:26)
[2018-09-06] MEDS: TRIHEXYPHENIDYL HCL 2 MG TABLET PO SCH ×4 (09:00→16:12)
[2018-09-06] MEDS: LORATADINE 10 MG TABLET PO SCH (10:25)
[2018-09-07 01:00] VITALS: BP 128/66
[2018-09-07] MEDS: FERROUS SULFATE 325 MG EC TABLET PO SCH ×3 (06:45→18:00)
[2018-09-07] MEDS: FLUTICASONE PROPIONATE 50 MCG/SPRAY 16 GM NASAL SPRAY NASAL SCH ×2 (09:00→18:00)
[2018-09-07] MEDS: LORATADINE 10 MG TABLET PO SCH (09:00)
[2018-09-07] MEDS: TRIHEXYPHENIDYL HCL 2 MG TABLET PO SCH ×3 (09:00→18:00)
[2018-09-07] MEDS: DULoxetine HCL 60 MG CAPSULE PO SCH (09:00)
[2018-09-08] MEDS: FERROUS SULFATE 325 MG EC TABLET PO SCH ×3 (06:53→16:42)
[2018-09-08] MEDS: FLUTICASONE PROPIONATE 50 MCG/SPRAY 16 GM NASAL SPRAY NASAL SCH ×2 (09:00→16:42)
[2018-09-08] MEDS: LORATADINE 10 MG TABLET PO SCH (09:00)
[2018-09-08] MEDS: TRIHEXYPHENIDYL HCL 2 MG TABLET PO SCH ×3 (09:00→16:42)
[2018-09-08] MEDS: DULoxetine HCL 60 MG CAPSULE PO SCH (09:00)
[2018-09-08 16:52] VITALS: BP 148/97
[2018-09-09] MEDS: FERROUS SULFATE 325 MG EC TABLET PO SCH ×4 (07:03→17:21)
[2018-09-09] MEDS: TRIHEXYPHENIDYL HCL 2 MG TABLET PO SCH ×5 (09:00→17:00)
[2018-09-09] MEDS: DULoxetine HCL 60 MG CAPSULE PO SCH ×2 (09:00→11:12)
[2018-09-09] MEDS: FLUTICASONE PROPIONATE 50 MCG/SPRAY 16 GM NASAL SPRAY NASAL SCH ×2 (09:00→17:00)
[2018-09-09] MEDS: LORATADINE 10 MG TABLET PO SCH ×2 (09:00→11:12)
[2018-09-10] MEDS: FERROUS SULFATE 325 MG EC TABLET PO SCH ×3 (06:39→18:00)
[2018-09-10] MEDS: FLUTICASONE PROPIONATE 50 MCG/SPRAY 16 GM NASAL SPRAY NASAL SCH ×2 (09:00→18:00)
[2018-09-10] MEDS: LORATADINE 10 MG TABLET PO SCH (09:43)
[2018-09-10] MEDS: DULoxetine HCL 60 MG CAPSULE PO SCH (09:43)
[2018-09-10] MEDS: TRIHEXYPHENIDYL HCL 2 MG TABLET PO SCH ×3 (09:43→18:00)
[2018-09-11 00:20] VITALS: BP 110/66
[2018-09-11] MEDS: FERROUS SULFATE 325 MG EC TABLET PO SCH ×3 (06:57→18:00)
[2018-09-11] MEDS: FLUTICASONE PROPIONATE 50 MCG/SPRAY 16 GM NASAL SPRAY NASAL SCH ×2 (12:08→18:00)
[2018-09-11] MEDS: TRIHEXYPHENIDYL HCL 2 MG TABLET PO SCH ×3 (12:08→18:00)
[2018-09-11] MEDS: LORATADINE 10 MG TABLET PO SCH (12:08)
[2018-09-11] MEDS: DULoxetine HCL 60 MG CAPSULE PO SCH (12:09)
[2018-09-12] MEDS: FERROUS SULFATE 325 MG EC TABLET PO SCH ×3 (06:47→17:30)
[2018-09-12] MEDS: DULoxetine HCL 60 MG CAPSULE PO SCH (09:00)
[2018-09-12] MEDS: FLUTICASONE PROPIONATE 50 MCG/SPRAY 16 GM NASAL SPRAY NASAL SCH ×2 (09:00→17:00)
[2018-09-12] MEDS: LORATADINE 10 MG TABLET PO SCH (09:00)
[2018-09-12] MEDS: TRIHEXYPHENIDYL HCL 2 MG TABLET PO SCH ×3 (09:00→17:00)
[2018-09-13] MEDS: FERROUS SULFATE 325 MG EC TABLET PO SCH ×3 (07:08→17:30)
[2018-09-13] MEDS: FLUTICASONE PROPIONATE 50 MCG/SPRAY 16 GM NASAL SPRAY NASAL SCH ×2 (09:00→17:00)
[2018-09-13] MEDS: LORATADINE 10 MG TABLET PO SCH (09:00)
[2018-09-13] MEDS: DULoxetine HCL 60 MG CAPSULE PO SCH (09:00)
[2018-09-13] MEDS: TRIHEXYPHENIDYL HCL 2 MG TABLET PO SCH ×3 (09:00→17:00)
[2018-09-14 01:06] VITALS: BP 140/70
[2018-09-14] MEDS: FERROUS SULFATE 325 MG EC TABLET PO SCH ×3 (07:12→17:30)
[2018-09-14] MEDS: DULoxetine HCL 60 MG CAPSULE PO SCH (09:00)
[2018-09-14] MEDS: LORATADINE 10 MG TABLET PO SCH (09:00)
[2018-09-14] MEDS: TRIHEXYPHENIDYL HCL 2 MG TABLET PO SCH ×3 (09:00→17:00)
[2018-09-14] MEDS: FLUTICASONE PROPIONATE 50 MCG/SPRAY 16 GM NASAL SPRAY NASAL SCH ×2 (09:00→17:00)
[2018-09-15] MEDS: FERROUS SULFATE 325 MG EC TABLET PO SCH ×3 (06:58→17:30)
[2018-09-15] MEDS: LORATADINE 10 MG TABLET PO SCH (09:00)
[2018-09-15] MEDS: FLUTICASONE PROPIONATE 50 MCG/SPRAY 16 GM NASAL SPRAY NASAL SCH ×2 (09:00→17:00)
[2018-09-15] MEDS: DULoxetine HCL 60 MG CAPSULE PO SCH (09:00)
[2018-09-15] MEDS: TRIHEXYPHENIDYL HCL 2 MG TABLET PO SCH ×3 (09:00→17:00)
[2018-09-16 04:45] VITALS: BP 116/72
[2018-09-16] MEDS: FERROUS SULFATE 325 MG EC TABLET PO SCH ×3 (06:48→16:48)
[2018-09-16] MEDS: FLUTICASONE PROPIONATE 50 MCG/SPRAY 16 GM NASAL SPRAY NASAL SCH ×2 (09:00→16:49)
[2018-09-16] MEDS: DULoxetine HCL 60 MG CAPSULE PO SCH (09:23)
[2018-09-16] MEDS: LORATADINE 10 MG TABLET PO SCH (09:23)
[2018-09-16] MEDS: MULTIVITAMINS WITH MINERALS, THERAPEUTIC TABLET PO SCH (09:23)
[2018-09-16] MEDS: TRIHEXYPHENIDYL HCL 2 MG TABLET PO SCH ×3 (09:23→16:48)
[2018-09-17] MEDS: FERROUS SULFATE 325 MG EC TABLET PO SCH ×3 (07:01→17:30)
[2018-09-17] MEDS: FLUTICASONE PROPIONATE 50 MCG/SPRAY 16 GM NASAL SPRAY NASAL SCH ×2 (08:47→17:00)
[2018-09-17] MEDS: MULTIVITAMINS WITH MINERALS, THERAPEUTIC TABLET PO SCH (08:48)
[2018-09-17] MEDS: TRIHEXYPHENIDYL HCL 2 MG TABLET PO SCH ×3 (08:48→17:00)
[2018-09-17] MEDS: LORATADINE 10 MG TABLET PO SCH (08:48)
[2018-09-17] MEDS: DULoxetine HCL 60 MG CAPSULE PO SCH (08:48)
[2018-09-17] MEDS: HALOPERIDOL 5 MG TABLET PO PRN (12:19)
[2018-09-18] MEDS: FERROUS SULFATE 325 MG EC TABLET PO SCH ×3 (06:15→16:25)
[2018-09-18] MEDS: DULoxetine HCL 60 MG CAPSULE PO SCH (09:23)
[2018-09-18] MEDS: MULTIVITAMINS WITH MINERALS, THERAPEUTIC TABLET PO SCH (09:23)
[2018-09-18] MEDS: LORATADINE 10 MG TABLET PO SCH (09:23)
[2018-09-18] MEDS: TRIHEXYPHENIDYL HCL 2 MG TABLET PO SCH ×3 (09:24→16:25)
[2018-09-18] MEDS: FLUTICASONE PROPIONATE 50 MCG/SPRAY 16 GM NASAL SPRAY NASAL SCH ×2 (09:26→16:26)
[2018-09-18 20:40] VITALS: BP 135/77
[2018-09-19] MEDS: FERROUS SULFATE 325 MG EC TABLET PO SCH ×3 (06:35→16:58)
[2018-09-19] MEDS: MULTIVITAMINS WITH MINERALS, THERAPEUTIC TABLET PO SCH (08:51)
[2018-09-19] MEDS: FLUTICASONE PROPIONATE 50 MCG/SPRAY 16 GM NASAL SPRAY NASAL SCH ×2 (08:51→16:12)
[2018-09-19] MEDS: LORATADINE 10 MG TABLET PO SCH (08:52)
[2018-09-19] MEDS: TRIHEXYPHENIDYL HCL 2 MG TABLET PO SCH ×3 (08:52→16:12)
[2018-09-19] MEDS: DULoxetine HCL 60 MG CAPSULE PO SCH (08:52)
[2018-09-19 16:53] VITALS: BP 149/73
[2018-09-20 01:03] VITALS: BP 116/70
[2018-09-20] MEDS: FERROUS SULFATE 325 MG EC TABLET PO SCH ×3 (06:50→17:25)
[2018-09-20] MEDS: FLUTICASONE PROPIONATE 50 MCG/SPRAY 16 GM NASAL SPRAY NASAL SCH ×2 (09:00→17:25)
[2018-09-20] MEDS: MULTIVITAMINS WITH MINERALS, THERAPEUTIC TABLET PO SCH (09:36)
[2018-09-20] MEDS: TRIHEXYPHENIDYL HCL 2 MG TABLET PO SCH ×3 (09:36→17:25)
[2018-09-20] MEDS: LORATADINE 10 MG TABLET PO SCH (09:36)
[2018-09-20] MEDS: DULoxetine HCL 60 MG CAPSULE PO SCH (09:36)
[2018-09-20 14:43] LABS: BASOPHILS % (AUTO) 0.8 % (0.0-2.0); EOSINOPHILS % (AUTO) 0.9 % (1.0-6.0); HEMATOCRIT 39.5 % (36-46); HEMOGLOBIN 12.6 g/dL (12.0-16.0); LYMPHOCYTES # (AUTO) 2.2 K/uL (1.0-4.8); LYMPHOCYTES % (AUTO) 17.1 % (22.0-44.0); MEAN CORPUSCULAR HEMOGLOBIN 25.9 pg (26.0-34.0); MEAN CORPUSCULAR HGB CONC 31.9 G/dL (31.0-37.0); MEAN CORPUSCULAR VOLUME 81 fL (80-100); MONOCYTES # (AUTO) 0.7 K/uL (0.1-1.0); MONOCYTES % (AUTO) 5.8 % (2.0-9.0); NEUTROPHILS # (AUTO) 9.7 K/uL (1.8-7.7); NEUTROPHILS % (AUTO) 75.4 % (40.0-70.0); PLATELET COUNT (AUTO) 565 K/uL (150-450); RED BLOOD CELL COUNT(AUTO) 4.86 MIL/uL (4.00-5.20); RED CELL DISTRIBUTION WIDTH 18.7 % (11.5-14.5)
[2018-09-21 00:01] VITALS: BP 120/65
[2018-09-21 06:38] LABS: HEMATOCRIT 33.3 % (36-46); HEMOGLOBIN 10.9 g/dL (12.0-16.0); MEAN CORPUSCULAR HEMOGLOBIN 25.9 pg (26.0-34.0); MEAN CORPUSCULAR HGB CONC 32.8 G/dL (31.0-37.0); MEAN CORPUSCULAR VOLUME 79 fL (80-100); PLATELET COUNT (AUTO) 460 K/uL (150-450); RED BLOOD CELL COUNT(AUTO) 4.22 MIL/uL (4.00-5.20); RED CELL DISTRIBUTION WIDTH 18.5 % (11.5-14.5)
[2018-09-21] MEDS: FERROUS SULFATE 325 MG EC TABLET PO SCH ×3 (06:50→19:14)
[2018-09-21 09:01] LABS: BAND NEUTROPHILS % (MANUAL) 1 % (0-5); EOSINOPHILS % (MANUAL) 2 % (1-6); LYMPHOCYTES % (MANUAL) 14 % (22-44); MONOCYTES % (MANUAL) 8 % (2-9); SEGMENTED NEUTROPHILS % 75 % (40-70)
[2018-09-21] MEDS: DULoxetine HCL 60 MG CAPSULE PO SCH (10:05)
[2018-09-21] MEDS: LORATADINE 10 MG TABLET PO SCH (10:05)
[2018-09-21] MEDS: MULTIVITAMINS WITH MINERALS, THERAPEUTIC TABLET PO SCH (10:05)
[2018-09-21] MEDS: TRIHEXYPHENIDYL HCL 2 MG TABLET PO SCH ×3 (10:06→16:06)
[2018-09-21] MEDS: FLUTICASONE PROPIONATE 50 MCG/SPRAY 16 GM NASAL SPRAY NASAL SCH ×2 (10:08→16:07)
[2018-09-21] MEDS: HALOPERIDOL 5 MG TABLET PO PRN (16:06)
[2018-09-22 03:46] LABS: APPEARANCE,URINE CLOUDY (CLEAR); BILIRUBIN,URINE NEGATIVE (NEGATIVE); GLUCOSE, URINE (UA) NEGATIVE (NEGATIVE); KETONES,URINE NEGATIVE (NEGATIVE); LEUKOCYTE ESTERASE ,URINE MODERATE (NEGATIVE); NITRATE,URINE NEGATIVE (NEGATIVE); OCCULT BLOOD,URINE LARGE (NEGATIVE); PROTEIN,URINE NEGATIVE (NEGATIVE); UROBILINOGEN,URINE 0.2 mg/dL (<=1.0)
[2018-09-22 04:02] LABS: BACTERIA,URINE Rare /HPF (None Seen); SQUAMOUS EPITHELIAL CELL,UR Few /LPF (None Seen)
[2018-09-22 05:55] VITALS: BP 118/71
[2018-09-22] MEDS: FERROUS SULFATE 325 MG EC TABLET PO SCH ×3 (07:08→17:30)
[2018-09-22] MEDS: MULTIVITAMINS WITH MINERALS, THERAPEUTIC TABLET PO SCH (08:13)
[2018-09-22] MEDS: DULoxetine HCL 60 MG CAPSULE PO SCH (08:13)
[2018-09-22] MEDS: LORATADINE 10 MG TABLET PO SCH (08:14)
[2018-09-22] MEDS: TRIHEXYPHENIDYL HCL 2 MG TABLET PO SCH ×3 (08:14→17:00)
[2018-09-22] MEDS: CIPROFLOXACIN HCL 250 MG TABLET PO SCH ×2 (08:15→17:00)
[2018-09-22] MEDS: FLUTICASONE PROPIONATE 50 MCG/SPRAY 16 GM NASAL SPRAY NASAL SCH ×2 (08:17→17:00)
[2018-09-22 09:21] VITALS: BP 107/67
[2018-09-23] MEDS: FERROUS SULFATE 325 MG EC TABLET PO SCH ×3 (06:51→16:06)
[2018-09-23] MEDS: LORATADINE 10 MG TABLET PO SCH (08:29)
[2018-09-23] MEDS: FLUTICASONE PROPIONATE 50 MCG/SPRAY 16 GM NASAL SPRAY NASAL SCH ×2 (08:29→16:07)
[2018-09-23] MEDS: MULTIVITAMINS WITH MINERALS, THERAPEUTIC TABLET PO SCH (08:29)
[2018-09-23] MEDS: TRIHEXYPHENIDYL HCL 2 MG TABLET PO SCH ×3 (08:30→16:07)
[2018-09-23] MEDS: CIPROFLOXACIN HCL 250 MG TABLET PO SCH ×2 (08:30→16:07)
[2018-09-23] MEDS: DULoxetine HCL 60 MG CAPSULE PO SCH (08:30)
[2018-09-23] MEDS: HALOPERIDOL 5 MG TABLET PO PRN (16:08)
[2018-09-23 16:37] VITALS: BP 117/53
[2018-09-24] MEDS: FERROUS SULFATE 325 MG EC TABLET PO SCH ×3 (06:59→18:30)
[2018-09-24] MEDS: LORATADINE 10 MG TABLET PO SCH (08:53)
[2018-09-24] MEDS: DULoxetine HCL 60 MG CAPSULE PO SCH (08:53)
[2018-09-24] MEDS: TRIHEXYPHENIDYL HCL 2 MG TABLET PO SCH ×3 (08:54→18:00)
[2018-09-24] MEDS: MULTIVITAMINS WITH MINERALS, THERAPEUTIC TABLET PO SCH (08:54)
[2018-09-24] MEDS: FLUTICASONE PROPIONATE 50 MCG/SPRAY 16 GM NASAL SPRAY NASAL SCH ×2 (08:54→18:00)
[2018-09-24] MEDS: CIPROFLOXACIN HCL 250 MG TABLET PO SCH ×2 (08:55→18:00)
[2018-09-24 16:49] VITALS: BP 108/61
[2018-09-25] MEDS: FERROUS SULFATE 325 MG EC TABLET PO SCH ×3 (06:50→16:17)
[2018-09-25] MEDS: FLUTICASONE PROPIONATE 50 MCG/SPRAY 16 GM NASAL SPRAY NASAL SCH ×2 (09:00→17:08)
[2018-09-25] MEDS: TRIHEXYPHENIDYL HCL 2 MG TABLET PO SCH ×3 (09:00→16:17)
[2018-09-25] MEDS: CIPROFLOXACIN HCL 250 MG TABLET PO SCH ×2 (09:00→16:17)
[2018-09-25] MEDS: MULTIVITAMINS WITH MINERALS, THERAPEUTIC TABLET PO SCH (09:00)
[2018-09-25] MEDS: LORATADINE 10 MG TABLET PO SCH (09:00)
[2018-09-25] MEDS: DULoxetine HCL 60 MG CAPSULE PO SCH (09:00)
[2018-09-26 00:24] VITALS: BP 108/65
[2018-09-26] MEDS: FERROUS SULFATE 325 MG EC TABLET PO SCH ×3 (07:02→16:45)
[2018-09-26] MEDS: DULoxetine HCL 60 MG CAPSULE PO SCH (09:00)
[2018-09-26] MEDS: TRIHEXYPHENIDYL HCL 2 MG TABLET PO SCH ×3 (09:00→16:44)
[2018-09-26] MEDS: FLUTICASONE PROPIONATE 50 MCG/SPRAY 16 GM NASAL SPRAY NASAL SCH ×2 (09:00→16:50)
[2018-09-26] MEDS: MULTIVITAMINS WITH MINERALS, THERAPEUTIC TABLET PO SCH (09:00)
[2018-09-26] MEDS: CIPROFLOXACIN HCL 250 MG TABLET PO SCH ×2 (09:00→16:45)
[2018-09-26] MEDS: LORATADINE 10 MG TABLET PO SCH (09:00)
[2018-09-27] MEDS: FERROUS SULFATE 325 MG EC TABLET PO SCH ×3 (06:52→18:00)
[2018-09-27 08:05] VITALS: BP 152/92
[2018-09-27] MEDS: TRIHEXYPHENIDYL HCL 2 MG TABLET PO SCH ×3 (09:00→18:00)
[2018-09-27] MEDS: LORATADINE 10 MG TABLET PO SCH ×2 (09:00→10:56)
[2018-09-27] MEDS: MULTIVITAMINS WITH MINERALS, THERAPEUTIC TABLET PO SCH (09:00)
[2018-09-27] MEDS: CIPROFLOXACIN HCL 250 MG TABLET PO SCH ×2 (09:00→18:00)
[2018-09-27] MEDS: FLUTICASONE PROPIONATE 50 MCG/SPRAY 16 GM NASAL SPRAY NASAL SCH ×2 (09:00→18:00)
[2018-09-27] MEDS: DULoxetine HCL 60 MG CAPSULE PO SCH (09:00)
[2018-09-27 16:43] VITALS: BP 119/76
[2018-09-28] MEDS: FERROUS SULFATE 325 MG EC TABLET PO SCH ×3 (06:46→17:10)
[2018-09-28 08:05] VITALS: BP 142/87
[2018-09-28] MEDS: TRIHEXYPHENIDYL HCL 2 MG TABLET PO SCH ×3 (10:00→17:10)
[2018-09-28] MEDS: LORATADINE 10 MG TABLET PO SCH (10:00)
[2018-09-28] MEDS: MULTIVITAMINS WITH MINERALS, THERAPEUTIC TABLET PO SCH (10:00)
[2018-09-28] MEDS: DULoxetine HCL 60 MG CAPSULE PO SCH (10:00)
[2018-09-28] MEDS: CIPROFLOXACIN HCL 250 MG TABLET PO SCH ×2 (10:00→17:10)
[2018-09-28] MEDS: FLUTICASONE PROPIONATE 50 MCG/SPRAY 16 GM NASAL SPRAY NASAL SCH ×2 (10:00→18:00)
[2018-09-28 20:05] VITALS: BP 134/66
[2018-09-29] MEDS: FERROUS SULFATE 325 MG EC TABLET PO SCH ×3 (06:53→17:30)
[2018-09-29] MEDS: FLUTICASONE PROPIONATE 50 MCG/SPRAY 16 GM NASAL SPRAY NASAL SCH ×2 (09:45→17:30)
[2018-09-29] MEDS: DULoxetine HCL 60 MG CAPSULE PO SCH (09:45)
[2018-09-29] MEDS: LORATADINE 10 MG TABLET PO SCH (09:45)
[2018-09-29] MEDS: MULTIVITAMINS WITH MINERALS, THERAPEUTIC TABLET PO SCH (09:45)
[2018-09-29] MEDS: TRIHEXYPHENIDYL HCL 2 MG TABLET PO SCH ×3 (09:46→17:30)
[2018-09-30] MEDS: FERROUS SULFATE 325 MG EC TABLET PO SCH ×3 (06:56→17:30)
[2018-09-30] MEDS: FLUTICASONE PROPIONATE 50 MCG/SPRAY 16 GM NASAL SPRAY NASAL SCH ×2 (09:00→17:30)
[2018-09-30] MEDS: MULTIVITAMINS WITH MINERALS, THERAPEUTIC TABLET PO SCH (10:25)
[2018-09-30] MEDS: DULoxetine HCL 60 MG CAPSULE PO SCH (10:25)
[2018-09-30] MEDS: LORATADINE 10 MG TABLET PO SCH (10:25)
[2018-09-30] MEDS: TRIHEXYPHENIDYL HCL 2 MG TABLET PO SCH ×3 (10:26→17:30)
[2018-10-01 02:30] VITALS: BP 129/66
[2018-10-01] MEDS: FERROUS SULFATE 325 MG EC TABLET PO SCH ×3 (06:36→17:30)
[2018-10-01] MEDS: FLUTICASONE PROPIONATE 50 MCG/SPRAY 16 GM NASAL SPRAY NASAL SCH ×2 (09:00→17:30)
[2018-10-01] MEDS: LORATADINE 10 MG TABLET PO SCH (09:48)
[2018-10-01] MEDS: MULTIVITAMINS WITH MINERALS, THERAPEUTIC TABLET PO SCH (09:48)
[2018-10-01] MEDS: DULoxetine HCL 60 MG CAPSULE PO SCH (09:48)
[2018-10-01] MEDS: TRIHEXYPHENIDYL HCL 2 MG TABLET PO SCH ×3 (09:48→17:30)
[2018-10-02] MEDS: FERROUS SULFATE 325 MG EC TABLET PO SCH ×3 (07:30→21:02)
[2018-10-02] MEDS: DULoxetine HCL 60 MG CAPSULE PO SCH (09:00)
[2018-10-02] MEDS: MULTIVITAMINS WITH MINERALS, THERAPEUTIC TABLET PO SCH (09:00)
[2018-10-02] MEDS: FLUTICASONE PROPIONATE 50 MCG/SPRAY 16 GM NASAL SPRAY NASAL SCH ×2 (09:00→21:03)
[2018-10-02] MEDS: LORATADINE 10 MG TABLET PO SCH (09:00)
[2018-10-02] MEDS: TRIHEXYPHENIDYL HCL 2 MG TABLET PO SCH ×3 (09:00→21:02)
[2018-10-03] MEDS: FERROUS SULFATE 325 MG EC TABLET PO SCH ×3 (06:33→16:25)
[2018-10-03 08:05] VITALS: BP 144/69
[2018-10-03] MEDS: HALOPERIDOL 5 MG TABLET PO PRN (08:38)
[2018-10-03] MEDS: TRIHEXYPHENIDYL HCL 2 MG TABLET PO SCH ×3 (08:39→16:25)
[2018-10-03] MEDS: DULoxetine HCL 60 MG CAPSULE PO SCH (08:39)
[2018-10-03] MEDS: LORATADINE 10 MG TABLET PO SCH (08:39)
[2018-10-03] MEDS: MULTIVITAMINS WITH MINERALS, THERAPEUTIC TABLET PO SCH (08:39)
[2018-10-03] MEDS: FLUTICASONE PROPIONATE 50 MCG/SPRAY 16 GM NASAL SPRAY NASAL SCH ×2 (10:17→16:25)
[2018-10-03 16:30] VITALS: BP 101/69
[2018-10-04 00:01] VITALS: BP 135/72
[2018-10-04] MEDS: FERROUS SULFATE 325 MG EC TABLET PO SCH ×3 (06:53→16:07)
[2018-10-04 08:05] VITALS: BP 114/68
[2018-10-04] MEDS: TRIHEXYPHENIDYL HCL 2 MG TABLET PO SCH ×3 (08:08→16:07)
[2018-10-04] MEDS: MULTIVITAMINS WITH MINERALS, THERAPEUTIC TABLET PO SCH (08:08)
[2018-10-04] MEDS: DULoxetine HCL 60 MG CAPSULE PO SCH (08:08)
[2018-10-04] MEDS: HALOPERIDOL 5 MG TABLET PO PRN (08:08)
[2018-10-04] MEDS: LORATADINE 10 MG TABLET PO SCH (08:12)
[2018-10-04] MEDS: FLUTICASONE PROPIONATE 50 MCG/SPRAY 16 GM NASAL SPRAY NASAL SCH ×2 (09:00→16:01)
[2018-10-05] MEDS: FERROUS SULFATE 325 MG EC TABLET PO SCH ×3 (07:30→16:26)
[2018-10-05] MEDS: TRIHEXYPHENIDYL HCL 2 MG TABLET PO SCH ×3 (10:14→16:25)
[2018-10-05] MEDS: LORATADINE 10 MG TABLET PO SCH (10:14)
[2018-10-05] MEDS: DULoxetine HCL 60 MG CAPSULE PO SCH (10:14)
[2018-10-05] MEDS: FLUTICASONE PROPIONATE 50 MCG/SPRAY 16 GM NASAL SPRAY NASAL SCH ×2 (10:14→16:26)
[2018-10-05] MEDS: MULTIVITAMINS WITH MINERALS, THERAPEUTIC TABLET PO SCH (10:14)
[2018-10-05] MEDS: HALOPERIDOL 5 MG TABLET PO PRN (16:26)
[2018-10-06 03:46] VITALS: BP 127/70
[2018-10-06] MEDS: FERROUS SULFATE 325 MG EC TABLET PO SCH ×3 (06:46→18:02)
[2018-10-06 08:05] VITALS: BP 127/70
[2018-10-06] MEDS: DULoxetine HCL 60 MG CAPSULE PO SCH (08:37)
[2018-10-06] MEDS: TRIHEXYPHENIDYL HCL 2 MG TABLET PO SCH ×3 (08:37→18:02)
[2018-10-06] MEDS: LORATADINE 10 MG TABLET PO SCH (08:38)
[2018-10-06] MEDS: HALOPERIDOL 5 MG TABLET PO PRN (08:38)
[2018-10-06] MEDS: MULTIVITAMINS WITH MINERALS, THERAPEUTIC TABLET PO SCH (08:38)
[2018-10-06] MEDS: FLUTICASONE PROPIONATE 50 MCG/SPRAY 16 GM NASAL SPRAY NASAL SCH ×2 (10:19→17:00)
[2018-10-07] MEDS: FERROUS SULFATE 325 MG EC TABLET PO SCH ×3 (07:09→18:29)
[2018-10-07] MEDS: LORATADINE 10 MG TABLET PO SCH (09:00)
[2018-10-07] MEDS: DULoxetine HCL 60 MG CAPSULE PO SCH (09:00)
[2018-10-07] MEDS: FLUTICASONE PROPIONATE 50 MCG/SPRAY 16 GM NASAL SPRAY NASAL SCH ×2 (09:00→18:00)
[2018-10-07] MEDS: MULTIVITAMINS WITH MINERALS, THERAPEUTIC TABLET PO SCH (09:00)
[2018-10-07] MEDS: TRIHEXYPHENIDYL HCL 2 MG TABLET PO SCH ×3 (09:00→17:59)
[2018-10-08 02:12] VITALS: BP 135/69
[2018-10-08] MEDS: FERROUS SULFATE 325 MG EC TABLET PO SCH ×3 (06:57→17:48)
[2018-10-08] MEDS: DULoxetine HCL 60 MG CAPSULE PO SCH (08:40)
[2018-10-08] MEDS: MULTIVITAMINS WITH MINERALS, THERAPEUTIC TABLET PO SCH (08:40)
[2018-10-08] MEDS: TRIHEXYPHENIDYL HCL 2 MG TABLET PO SCH ×3 (08:40→17:48)
[2018-10-08] MEDS: LORATADINE 10 MG TABLET PO SCH (08:40)
[2018-10-08] MEDS: FLUTICASONE PROPIONATE 50 MCG/SPRAY 16 GM NASAL SPRAY NASAL SCH ×2 (08:41→17:48)
[2018-10-08 08:56] VITALS: BP 148/69
[2018-10-09] MEDS: FERROUS SULFATE 325 MG EC TABLET PO SCH ×3 (06:39→17:18)
[2018-10-09 08:46] VITALS: BP 133/71
[2018-10-09] MEDS: FLUTICASONE PROPIONATE 50 MCG/SPRAY 16 GM NASAL SPRAY NASAL SCH ×2 (09:23→17:00)
[2018-10-09] MEDS: TRIHEXYPHENIDYL HCL 2 MG TABLET PO SCH ×3 (09:23→17:18)
[2018-10-09] MEDS: DULoxetine HCL 60 MG CAPSULE PO SCH (09:23)
[2018-10-09] MEDS: MULTIVITAMINS WITH MINERALS, THERAPEUTIC TABLET PO SCH (09:23)
[2018-10-09] MEDS: HALOPERIDOL 5 MG TABLET PO PRN (09:23)
[2018-10-09] MEDS: LORATADINE 10 MG TABLET PO SCH (09:24)
[2018-10-10] MEDS: FERROUS SULFATE 325 MG EC TABLET PO SCH ×3 (07:01→17:30)
[2018-10-10] MEDS: MULTIVITAMINS WITH MINERALS, THERAPEUTIC TABLET PO SCH (09:00)
[2018-10-10] MEDS: DULoxetine HCL 60 MG CAPSULE PO SCH (09:00)
[2018-10-10] MEDS: LORATADINE 10 MG TABLET PO SCH (09:00)
[2018-10-10] MEDS: FLUTICASONE PROPIONATE 50 MCG/SPRAY 16 GM NASAL SPRAY NASAL SCH ×2 (09:00→17:00)
[2018-10-10] MEDS: TRIHEXYPHENIDYL HCL 2 MG TABLET PO SCH ×3 (09:00→17:00)
[2018-10-11 01:42] VITALS: BP 112/73
[2018-10-11] MEDS: FERROUS SULFATE 325 MG EC TABLET PO SCH ×3 (06:44→17:37)
[2018-10-11 08:05] VITALS: BP 138/75
[2018-10-11] MEDS: LORATADINE 10 MG TABLET PO SCH (08:50)
[2018-10-11] MEDS: MULTIVITAMINS WITH MINERALS, THERAPEUTIC TABLET PO SCH (08:50)
[2018-10-11] MEDS: TRIHEXYPHENIDYL HCL 2 MG TABLET PO SCH ×3 (08:50→17:37)
[2018-10-11] MEDS: DULoxetine HCL 60 MG CAPSULE PO SCH (08:50)
[2018-10-11] MEDS: FLUTICASONE PROPIONATE 50 MCG/SPRAY 16 GM NASAL SPRAY NASAL SCH ×2 (08:51→17:37)
[2018-10-11 19:31] VITALS: BP 134/80
[2018-10-12 04:04] VITALS: BP 144/74
[2018-10-12] MEDS: FERROUS SULFATE 325 MG EC TABLET PO SCH ×3 (06:54→17:02)
[2018-10-12] MEDS: FLUTICASONE PROPIONATE 50 MCG/SPRAY 16 GM NASAL SPRAY NASAL SCH ×2 (09:00→17:02)
[2018-10-12] MEDS: TRIHEXYPHENIDYL HCL 2 MG TABLET PO SCH ×3 (09:09→17:02)
[2018-10-12] MEDS: MULTIVITAMINS WITH MINERALS, THERAPEUTIC TABLET PO SCH (09:09)
[2018-10-12] MEDS: LORATADINE 10 MG TABLET PO SCH (09:09)
[2018-10-12] MEDS: DULoxetine HCL 60 MG CAPSULE PO SCH (09:09)
[2018-10-12 10:40] VITALS: BP 149/73
[2018-10-13] MEDS: FERROUS SULFATE 325 MG EC TABLET PO SCH ×3 (06:57→17:27)
[2018-10-13] MEDS: FLUTICASONE PROPIONATE 50 MCG/SPRAY 16 GM NASAL SPRAY NASAL SCH ×2 (09:00→17:27)
[2018-10-13] MEDS: LORATADINE 10 MG TABLET PO SCH (09:53)
[2018-10-13] MEDS: GuaiFENesin/D-METHORPHAN/PHENYLEPH 5 ML LIQUID ORAL.SYG PO PRN (09:53)
[2018-10-13] MEDS: TRIHEXYPHENIDYL HCL 2 MG TABLET PO SCH ×3 (09:53→17:27)
[2018-10-13] MEDS: MULTIVITAMINS WITH MINERALS, THERAPEUTIC TABLET PO SCH (09:54)
[2018-10-13] MEDS: DULoxetine HCL 60 MG CAPSULE PO SCH (09:54)
[2018-10-14] MEDS: FERROUS SULFATE 325 MG EC TABLET PO SCH ×3 (06:38→16:03)
[2018-10-14] MEDS: FLUTICASONE PROPIONATE 50 MCG/SPRAY 16 GM NASAL SPRAY NASAL SCH ×2 (09:00→16:05)
[2018-10-14] MEDS: TRIHEXYPHENIDYL HCL 2 MG TABLET PO SCH ×3 (09:32→16:03)
[2018-10-14] MEDS: MULTIVITAMINS WITH MINERALS, THERAPEUTIC TABLET PO SCH (09:33)
[2018-10-14] MEDS: LORATADINE 10 MG TABLET PO SCH (09:33)
[2018-10-14] MEDS: DULoxetine HCL 60 MG CAPSULE PO SCH (09:33)
[2018-10-14 16:57] VITALS: BP 127/69
[2018-10-15] MEDS: FERROUS SULFATE 325 MG EC TABLET PO SCH ×3 (07:04→17:36)
[2018-10-15] MEDS: FLUTICASONE PROPIONATE 50 MCG/SPRAY 16 GM NASAL SPRAY NASAL SCH ×2 (09:00→17:00)
[2018-10-15] MEDS: DULoxetine HCL 60 MG CAPSULE PO SCH ×2 (09:00→09:37)
[2018-10-15] MEDS: LORATADINE 10 MG TABLET PO SCH ×2 (09:00→09:37)
[2018-10-15] MEDS: TRIHEXYPHENIDYL HCL 2 MG TABLET PO SCH ×4 (09:00→16:20)
[2018-10-15] MEDS: MULTIVITAMINS WITH MINERALS, THERAPEUTIC TABLET PO SCH ×2 (09:00→09:37)
[2018-10-16] MEDS: FERROUS SULFATE 325 MG EC TABLET PO SCH ×3 (06:50→17:30)
[2018-10-16] MEDS: DULoxetine HCL 60 MG CAPSULE PO SCH (09:00)
[2018-10-16] MEDS: MULTIVITAMINS WITH MINERALS, THERAPEUTIC TABLET PO SCH (09:00)
[2018-10-16] MEDS: TRIHEXYPHENIDYL HCL 2 MG TABLET PO SCH ×3 (09:00→17:00)
[2018-10-16] MEDS: LORATADINE 10 MG TABLET PO SCH (09:00)
[2018-10-16] MEDS: FLUTICASONE PROPIONATE 50 MCG/SPRAY 16 GM NASAL SPRAY NASAL SCH ×2 (09:00→17:00)
[2018-10-17 01:13] VITALS: BP 129/71
[2018-10-17] MEDS: FERROUS SULFATE 325 MG EC TABLET PO SCH ×3 (07:00→17:54)
[2018-10-17] MEDS: FLUTICASONE PROPIONATE 50 MCG/SPRAY 16 GM NASAL SPRAY NASAL SCH ×2 (10:05→17:53)
[2018-10-17] MEDS: TRIHEXYPHENIDYL HCL 2 MG TABLET PO SCH ×3 (10:06→17:54)
[2018-10-17] MEDS: DULoxetine HCL 60 MG CAPSULE PO SCH (10:08)
[2018-10-17] MEDS: MULTIVITAMINS WITH MINERALS, THERAPEUTIC TABLET PO SCH (10:08)
[2018-10-17] MEDS: LORATADINE 10 MG TABLET PO SCH (10:08)
[2018-10-18] MEDS: FERROUS SULFATE 325 MG EC TABLET PO SCH ×3 (06:52→16:45)
[2018-10-18] MEDS: MULTIVITAMINS WITH MINERALS, THERAPEUTIC TABLET PO SCH (12:56)
[2018-10-18] MEDS: TRIHEXYPHENIDYL HCL 2 MG TABLET PO SCH ×3 (12:57→16:45)
[2018-10-18] MEDS: LORATADINE 10 MG TABLET PO SCH (12:57)
[2018-10-18] MEDS: DULoxetine HCL 60 MG CAPSULE PO SCH (12:57)
[2018-10-18] MEDS: FLUTICASONE PROPIONATE 50 MCG/SPRAY 16 GM NASAL SPRAY NASAL SCH ×2 (12:57→16:45)
[2018-10-19] MEDS: FERROUS SULFATE 325 MG EC TABLET PO SCH ×3 (06:34→17:30)
[2018-10-19] MEDS: MULTIVITAMINS WITH MINERALS, THERAPEUTIC TABLET PO SCH (09:00)
[2018-10-19] MEDS: TRIHEXYPHENIDYL HCL 2 MG TABLET PO SCH ×3 (09:00→17:00)
[2018-10-19] MEDS: FLUTICASONE PROPIONATE 50 MCG/SPRAY 16 GM NASAL SPRAY NASAL SCH ×2 (09:00→17:00)
[2018-10-19] MEDS: DULoxetine HCL 60 MG CAPSULE PO SCH (09:00)
[2018-10-19] MEDS: LORATADINE 10 MG TABLET PO SCH (09:00)
[2018-10-19 16:22] VITALS: BP 115/75
[2018-10-20] MEDS: FERROUS SULFATE 325 MG EC TABLET PO SCH (06:48)
[2018-10-20] MEDS: LORATADINE 10 MG TABLET PO SCH (09:00)
[2018-10-20] MEDS: MULTIVITAMINS WITH MINERALS, THERAPEUTIC TABLET PO SCH (09:00)
[2018-10-20] MEDS: TRIHEXYPHENIDYL HCL 2 MG TABLET PO SCH (09:00)
[2018-10-20] MEDS: FLUTICASONE PROPIONATE 50 MCG/SPRAY 16 GM NASAL SPRAY NASAL SCH (09:00)
[2018-10-20] MEDS: DULoxetine HCL 60 MG CAPSULE PO SCH (09:00)
[2018-10-20 11:44] VITALS: BP 115/79
== END 2018-10-20 13:09 | disposition short-term general hospital (02) | DRG 750 ==
LOC: EMS 20:28 → B3A 07-14 05:24 → B2S 07-24 19:15 → 3EI 08-13 20:05
PROVIDERS: ADMIT Psychiatry & Neurology Psychiatry; ATTEND Psychiatry & Neurology Psychiatry
DX: F20.0 Paranoid schizophrenia (principal); E43 Unspecified severe protein-calorie malnutrition; D64.9 Anemia, unspecified; N39.0 Urinary tract infection, site not specified; D72.829 Elevated white blood cell count, unspecified; E87.6 Hypokalemia; F41.9 Anxiety disorder, unspecified; J06.9 Acute upper respiratory infection, unspecified; H10.9 Unspecified conjunctivitis; H04.123 Dry eye syndrome of bilateral lacrimal glands; N95.0 Postmenopausal bleeding; N83.201 Unspecified ovarian cyst, right side; F17.210 Nicotine dependence, cigarettes, uncomplicated; F31.9 Bipolar disorder, unspecified; G25.9 Extrapyramidal and movement disorder, unspecified; R45.87 Impulsiveness; H54.7 Unspecified visual loss; H91.3 Deaf nonspeaking, not elsewhere classified; N83.299 Other ovarian cyst, unspecified side; Z59.0 Homelessness; Z88.0 Allergy status to penicillin; Z88.7 Allergy status to serum and vaccine; Z68.1 Body mass index [BMI] 19.9 or less, adult; Z91.14 Patient's other noncompliance with medication regimen
CPT/HCPCS: 76856; 83036; 84132; 84443; 85007; 86301; 86304; 87081; 87086; 93005; G0480; J1630; J2060

== ENCOUNTER 2018-07-14 13:33 | Emergency (ER) | payer MEDICARE, MEDICAID ==
[~2018-07-14] VITALS: Ht 157.5 cm; Wt 59.1 kg
[2018-07-14] MEDS ORDERED: CLON0.1T PO (14:08)
[2018-07-14] MEDS ORDERED: ALBU8HFA IH (14:08)
[2018-07-14] MEDS ORDERED: DULO60CA44 PO (14:08)
[2018-07-14] MEDS ORDERED: DSS100 PO (14:08)
[2018-07-14] MEDS ORDERED: HALO5TAB2 PO ×2 (14:08)
[2018-07-14] MEDS ORDERED: LOPE2 PO (14:08)
[2018-07-14] MEDS ORDERED: MAG360OR93 PO (14:08)
[2018-07-14] MEDS ORDERED: [UNRECOGNIZED DRUG - CODE] PO (14:08)
[2018-07-14] MEDS ORDERED: ONDA4 PO (14:08)
[2018-07-14] MEDS ORDERED: IBUP-1506 PO (14:08)
[2018-07-14] MEDS ORDERED: LORA2TAB2 PO (14:08)
[2018-07-14] MEDS ORDERED: FERR-89 PO (14:08)
[2018-07-14] MEDS ORDERED: ZOLP10TA7 PO (14:08)
[2018-07-14] MEDS ORDERED: MOM30 PO (14:08)
[2018-07-14] MEDS ORDERED: ACET-2247 PO (14:08)
[2018-07-14] MEDS ORDERED: TRIH2TAB3 PO (14:08)
[2018-07-14 17:23] VITALS: BP 108/57
== END 2018-07-14 17:53 | disposition home or self-care (01) ==
LOC: EMS 13:37
DX: R32 Unspecified urinary incontinence (principal); I10 Essential (primary) hypertension; E11.9 Type 2 diabetes mellitus without complications; F31.9 Bipolar disorder, unspecified; F20.9 Schizophrenia, unspecified; F17.210 Nicotine dependence, cigarettes, uncomplicated; Z88.0 Allergy status to penicillin; Z88.7 Allergy status to serum and vaccine; Z79.899 Other long term (current) drug therapy

== ENCOUNTER 2018-10-20 11:45 | Inpatient (IN) | payer MEDICARE, MEDICAID ==
[2018-10-20 11:00] VITALS: BP 115/66
[~2018-10-20 11:45] MED LIST changes: +ACET-2247 PO; +ALBU8HFA IH; +CLON0.1T PO; +DSS100 PO; +DULO60CA44 PO; +FERR-89 PO; -HALO10 PO; +HALO5TAB2 PO; +IBUP-1506 PO; +LOPE2 PO; +LORA2TAB2 PO; +MAG360OR93 PO; +MOM30 PO; +ONDA4 PO; +TRIH2TAB3 PO; +ZOLP10TA7 PO; +[UNRECOGNIZED DRUG - CODE] PO
[2018-10-20 15:31] VITALS: BP 134/74
[2018-10-20] MEDS ORDERED: HALOPERIDOL 5 MG TABLET PO PRN (18:45)
[2018-10-20] MEDS ORDERED: OxyCODONE HCL/ACETAMINOPHEN 5-325 MG TABLET PO PRN ×2 (18:45)
[2018-10-20] MEDS ORDERED: ONDANSETRON HCL 4 MG/2 ML VIAL IVP PRN (18:45)
[2018-10-20] MEDS ORDERED: 0.9% SODIUM CHLORIDE 10 ML SYRINGE IVP PRN (18:45)
[2018-10-20 19:35] LABS: EOSINOPHILS % (AUTO) 0.3 % (1.0-6.0); HEMATOCRIT 36.7 % (36-46); HEMOGLOBIN 11.7 g/dL (12.0-16.0); LYMPHOCYTES # (AUTO) 1.9 K/uL (1.0-4.8); LYMPHOCYTES % (AUTO) 14.2 % (22.0-44.0); MEAN CORPUSCULAR HEMOGLOBIN 26.2 pg (26.0-34.0); MEAN CORPUSCULAR HGB CONC 31.8 G/dL (31.0-37.0); MEAN CORPUSCULAR VOLUME 82 fL (80-100); MONOCYTES # (AUTO) 1.1 K/uL (0.1-1.0); MONOCYTES % (AUTO) 7.9 % (2.0-9.0); NEUTROPHILS # (AUTO) 10.5 K/uL (1.8-7.7); NEUTROPHILS % (AUTO) 76.6 % (40.0-70.0); PLATELET COUNT (AUTO) 444 K/uL (150-450); RED BLOOD CELL COUNT(AUTO) 4.45 MIL/uL (4.00-5.20); RED CELL DISTRIBUTION WIDTH 16.1 % (11.5-14.5)
[2018-10-20 20:29] VITALS: BP 125/61
[2018-10-20] MEDS: PANTOPRAZOLE SODIUM 40 MG/VIAL IVP SCH (20:50)
[2018-10-20] MEDS: HALOPERIDOL 5 MG TABLET PO SCH (20:50)
[2018-10-20] MEDS: DULoxetine HCL 60 MG CAPSULE PO SCH (20:50)
[2018-10-20] MEDS: DOCUSATE SODIUM 100 MG CAPSULE PO SCH (20:50)
[2018-10-20] MEDS: TRIHEXYPHENIDYL HCL 2 MG TABLET PO SCH (20:53)
[2018-10-20] MEDS: CloNIDine HCL 0.1 MG TABLET PO SCH (20:53)
[2018-10-21 00:27] VITALS: BP 130/61
[2018-10-21 04:40] VITALS: BP 121/57
[2018-10-21] MEDS: CloNIDine HCL 0.1 MG TABLET PO SCH ×4 (05:58→18:00)
[2018-10-21] MEDS: PANTOPRAZOLE SODIUM 40 MG/VIAL IVP SCH (09:00)
[2018-10-21] MEDS: DULoxetine HCL 60 MG CAPSULE PO SCH (10:32)
[2018-10-21] MEDS: DOCUSATE SODIUM 100 MG CAPSULE PO SCH ×2 (10:32→21:18)
[2018-10-21] MEDS: TRIHEXYPHENIDYL HCL 2 MG TABLET PO SCH ×3 (10:32→21:19)
[2018-10-21] MEDS: FERROUS SULFATE 325 MG EC TABLET PO SCH ×3 (10:32→18:04)
[2018-10-21] MEDS ORDERED: GADOBUTROL 1 MMOL/ML 10 ML VIAL IVP ONE (10:37)
[2018-10-21 15:47] VITALS: BP 102/62
[2018-10-21 20:13] VITALS: BP 102/56
[2018-10-21] MEDS: HALOPERIDOL 5 MG TABLET PO SCH (21:19)
[2018-10-21 23:48] VITALS: BP 92/53
[2018-10-22 04:30] VITALS: BP 104/58
[2018-10-22 07:22] VITALS: BP 114/58
[2018-10-22] MEDS: FERROUS SULFATE 325 MG EC TABLET PO SCH ×4 (08:00→18:01)
[2018-10-22] MEDS: PANTOPRAZOLE SODIUM 40 MG/VIAL IVP SCH (09:00)
[2018-10-22] MEDS ORDERED: MedroxyPROGESTERone ACET 5 MG TABLET PO SCH (10:30)
[2018-10-22 10:55] VITALS: BP 110/62
[2018-10-22] MEDS: DULoxetine HCL 60 MG CAPSULE PO SCH (12:06)
[2018-10-22] MEDS: CloNIDine HCL 0.1 MG TABLET PO SCH ×4 (12:07→23:47)
[2018-10-22] MEDS: TRIHEXYPHENIDYL HCL 2 MG TABLET PO SCH ×3 (12:07→19:58)
[2018-10-22] MEDS: MedroxyPROGESTERone ACET 5 MG TABLET PO SCH (12:07)
[2018-10-22] MEDS: DOCUSATE SODIUM 100 MG CAPSULE PO SCH ×2 (12:07→19:58)
[2018-10-22 15:38] VITALS: BP 112/68
[2018-10-22] MEDS: HALOPERIDOL 5 MG TABLET PO SCH (19:58)
[2018-10-23] MEDS: CloNIDine HCL 0.1 MG TABLET PO SCH ×2 (05:51→12:00)
[2018-10-23 07:29] VITALS: BP 114/64
[2018-10-23] MEDS: PANTOPRAZOLE SODIUM 40 MG/VIAL IVP SCH (08:08)
[2018-10-23] MEDS: TRIHEXYPHENIDYL HCL 2 MG TABLET PO SCH (08:46)
[2018-10-23] MEDS: DULoxetine HCL 60 MG CAPSULE PO SCH (08:46)
[2018-10-23] MEDS: FERROUS SULFATE 325 MG EC TABLET PO SCH ×2 (08:46→12:00)
[2018-10-23] MEDS: DOCUSATE SODIUM 100 MG CAPSULE PO SCH (08:46)
[2018-10-23] MEDS: MedroxyPROGESTERone ACET 5 MG TABLET PO SCH (08:46)
[2018-10-23 11:47] VITALS: BP 121/62
[2018-10-23] MEDS ORDERED: FERR-89 PO (11:54)
[2018-10-23] MEDS ORDERED: PROV5 PO (11:54)
== END 2018-10-23 15:00 | disposition home or self-care (01) | DRG 760 ==
LOC: 5N 11:45
PROVIDERS: ADMIT Internal Medicine; ATTEND Internal Medicine
DX: N93.9 Abnormal uterine and vaginal bleeding, unspecified (principal); E43 Unspecified severe protein-calorie malnutrition; F20.0 Paranoid schizophrenia; N95.0 Postmenopausal bleeding; N83.299 Other ovarian cyst, unspecified side; J44.9 Chronic obstructive pulmonary disease, unspecified; I10 Essential (primary) hypertension; E11.9 Type 2 diabetes mellitus without complications; Z53.20 Procedure and treatment not carried out because of patient's decision for unspecified reasons; H91.3 Deaf nonspeaking, not elsewhere classified; D64.9 Anemia, unspecified; R97.8 Other abnormal tumor markers; Z87.440 Personal history of urinary (tract) infections; Z88.0 Allergy status to penicillin; Z88.7 Allergy status to serum and vaccine; Z79.899 Other long term (current) drug therapy
CPT/HCPCS: 86850; 86900; 86901; A9585; C9113; G0378

== ENCOUNTER 2018-11-06 14:56 | Emergency (ER) | payer MEDICARE, MEDICAID ==
[~2018-11-06 14:56] MED LIST changes: -HALO5TAB2 PO; -IBUP-1506 PO; -LOPE2 PO; -LORA2TAB2 PO; -MAG360OR93 PO; -MOM30 PO; -ONDA4 PO; +PROV5 PO; -TRIH2TAB3 PO; -ZOLP10TA7 PO
[2018-11-06 16:41] LABS: AMPHET/METH SCREEN,URINE NEGATIVE (NEGATIVE); BARBITURATE SCREEN, URINE NEGATIVE (NEGATIVE); BENZODIAZEPINES SCREEN,URINE NEGATIVE (NEGATIVE); CANNABINOID SCREEN,URINE NEGATIVE (NEGATIVE); COCAINE SCREEN,URINE NEGATIVE (NEGATIVE); METHADONE SCREEN, URINE NEGATIVE (NEGATIVE); OPIATE SCREEN,URINE NEGATIVE (NEGATIVE)
[2018-11-06 16:43] LABS: PHENCYCLIDINE SCREEN,URINE NEGATIVE (NEGATIVE)
== END 2018-11-06 18:15 | disposition home or self-care (01) ==
LOC: EMS 14:58
DX: F20.0 Paranoid schizophrenia (principal); I10 Essential (primary) hypertension; E11.9 Type 2 diabetes mellitus without complications; F31.9 Bipolar disorder, unspecified; F20.9 Schizophrenia, unspecified; F17.210 Nicotine dependence, cigarettes, uncomplicated; Z88.0 Allergy status to penicillin; Z88.7 Allergy status to serum and vaccine

== ENCOUNTER 2018-11-06 19:24 | Inpatient (IN) | payer MEDICARE, MEDICAID ==
[~2018-11-06] VITALS: Ht 154.9 cm; Wt 42.3 kg
[2018-11-07] MEDS ORDERED: SODIUM CHLORIDE 0.9% 1,000 ML IV ONE (06:15)
[2018-11-07 06:31] LABS: APPEARANCE,URINE CLEAR (CLEAR); BILIRUBIN,URINE NEGATIVE (NEGATIVE); GLUCOSE, URINE (UA) NEGATIVE (NEGATIVE); KETONES,URINE NEGATIVE (NEGATIVE); LEUKOCYTE ESTERASE ,URINE NEGATIVE (NEGATIVE); NITRATE,URINE NEGATIVE (NEGATIVE); OCCULT BLOOD,URINE NEGATIVE (NEGATIVE); PH,URINE 6.5 (5.0-8.0); PROTEIN,URINE NEGATIVE (NEGATIVE)
[2018-11-07 06:40] LABS: RBC,URINE 0-2 /HPF (0-2); WBC,URINE 0-2 /HPF (0-5)
[2018-11-07 06:41] LABS: BACTERIA,URINE None Seen /HPF (None Seen); SQUAMOUS EPITHELIAL CELL,UR Rare /LPF (None Seen)
[2018-11-07 06:58] LABS: BASOPHILS % (AUTO) 0.7 % (0.0-2.0); EOSINOPHILS % (AUTO) 1.5 % (1.0-6.0); HEMATOCRIT 34.1 % (36-46); HEMOGLOBIN 10.7 g/dL (12.0-16.0); LYMPHOCYTES # (AUTO) 2.2 K/uL (1.0-4.8); LYMPHOCYTES % (AUTO) 20.6 % (22.0-44.0); MEAN CORPUSCULAR HEMOGLOBIN 26.4 pg (26.0-34.0); MEAN CORPUSCULAR HGB CONC 31.5 G/dL (31.0-37.0); MEAN CORPUSCULAR VOLUME 84 fL (80-100); MONOCYTES # (AUTO) 0.8 K/uL (0.1-1.0); MONOCYTES % (AUTO) 7.3 % (2.0-9.0); NEUTROPHILS # (AUTO) 7.6 K/uL (1.8-7.7); NEUTROPHILS % (AUTO) 69.9 % (40.0-70.0); PLATELET COUNT (AUTO) 452 K/uL (150-450); RED BLOOD CELL COUNT(AUTO) 4.07 MIL/uL (4.00-5.20); RED CELL DISTRIBUTION WIDTH 15.8 % (11.5-14.5)
[2018-11-07] MEDS ORDERED: ACETAMINOPHEN 325 MG TABLET PO PRN ×2 (07:00→13:45)
[2018-11-07] MEDS ORDERED: ONDANSETRON HCL 4 MG/2 ML VIAL IVP PRN ×2 (07:00→13:45)
[2018-11-07 07:06] LABS: ANION GAP 11 mmol/L (8-16); CALCIUM, TOTAL 9.4 mg/dL (8.8-10.5); CARBON DIOXIDE 26 mmol/L (22-29); CHLORIDE 106 mmol/L (98-107); CREATININE 0.72 mg/dL (0.60-1.30); GLOMERULAR FILTR. RATE CALC > 60 mL/min (>60); GLUCOSE,RANDOM 84 mg/dL (70-110); POTASSIUM 5.6 mmol/L (3.5-5.1); SODIUM SERUM 143 mmol/L (136-145); UREA NITROGEN, BLOOD 16 mg/dL (7-18)
[2018-11-07 07:11] LABS: ALANINE AMINOTRANSFERASE 19 U/L (12-78); ALBUMIN 3.2 g/dL (3.4-5.0); ALKALINE PHOSPHATASE 80 U/L (46-116); ASPARTATE AMINOTRANSFERASE 33 U/L (15-37); BILIRUBIN,TOTAL 0.3 mg/dL (0.1-1.0); TOTAL PROTEIN, SERUM 7.3 g/dL (6.4-8.2)
[2018-11-07 08:28] VITALS: BP 128/76
[2018-11-07 11:38] VITALS: BP 133/78
[2018-11-07] MEDS ORDERED: IPRATROPIUM BROMIDE 0.5 MG/2.5 ML NEB SOLUTION NEB PRN (13:45)
[2018-11-07] MEDS ORDERED: BISACODYL 10 MG RECTAL RECTAL SUPPOSITORY PR PRN (13:45)
[2018-11-07] MEDS ORDERED: ZOLPIDEM TARTRATE 5 MG TABLET PO PRN (13:45)
[2018-11-07] MEDS ORDERED: ALBUTEROL SULFATE 2.5 MG/0.5 ML NEB SOLUTION NEB PRN (13:45)
[2018-11-07] MEDS ORDERED: MAGNESIUM HYDROXIDE SUSPENSION 30 ML UDCUP PO PRN (13:45)
[2018-11-07] MEDS ORDERED: GuaiFENesin/D-METHORPHAN/PHENYLEPH 5 ML LIQUID ORAL.SYG PO PRN (13:45)
[2018-11-07 15:54] VITALS: BP 143/74
[2018-11-07] MEDS: FERROUS SULFATE 325 MG EC TABLET PO SCH (17:05)
[2018-11-07] MEDS ORDERED: FERROUS SULFATE 325 MG EC TABLET PO SCH (18:00)
[2018-11-07 19:44] VITALS: BP 136/89
[2018-11-07] MEDS: DOCUSATE SODIUM 100 MG CAPSULE PO SCH (20:24)
[2018-11-07] MEDS ORDERED: DOCUSATE SODIUM 100 MG CAPSULE PO SCH (21:00)
[2018-11-07 23:19] VITALS: BP 136/76
[2018-11-08 04:00] VITALS: BP 125/79
[2018-11-08] MEDS: DULoxetine HCL 60 MG CAPSULE PO SCH (08:38)
[2018-11-08] MEDS: MedroxyPROGESTERone ACET 5 MG TABLET PO SCH (08:38)
[2018-11-08] MEDS: FERROUS SULFATE 325 MG EC TABLET PO SCH ×3 (08:38→18:00)
[2018-11-08] MEDS: DOCUSATE SODIUM 100 MG CAPSULE PO SCH ×2 (08:39→19:56)
[2018-11-08 09:00] VITALS: BP 146/79
[2018-11-08] MEDS ORDERED: PANTOPRAZOLE SODIUM 40 MG/VIAL IVP SCH (09:00)
[2018-11-08] MEDS: PANTOPRAZOLE SODIUM 40 MG DR TABLET PO SCH (09:47)
[2018-11-08 11:48] VITALS: BP 142/74
[2018-11-08 15:34] VITALS: BP 132/75
[2018-11-08 19:30] VITALS: BP 140/74
[2018-11-09 08:05] VITALS: BP 98/44
[2018-11-09] MEDS: FERROUS SULFATE 325 MG EC TABLET PO SCH ×2 (08:28→12:09)
[2018-11-09] MEDS: MedroxyPROGESTERone ACET 5 MG TABLET PO SCH (08:28)
[2018-11-09] MEDS: DULoxetine HCL 60 MG CAPSULE PO SCH (08:28)
[2018-11-09] MEDS: DOCUSATE SODIUM 100 MG CAPSULE PO SCH (08:28)
[2018-11-09] MEDS: PANTOPRAZOLE SODIUM 40 MG DR TABLET PO SCH (08:28)
[2018-11-09 11:03] LABS: ALANINE AMINOTRANSFERASE 18 U/L (12-78); ALBUMIN 3.2 g/dL (3.4-5.0); ALKALINE PHOSPHATASE 72 U/L (46-116); ANION GAP 11 mmol/L (8-16); ASPARTATE AMINOTRANSFERASE 15 U/L (15-37); BILIRUBIN,TOTAL 0.3 mg/dL (0.1-1.0); CALCIUM, TOTAL 9.2 mg/dL (8.8-10.5); CARBON DIOXIDE 25 mmol/L (22-29); CHLORIDE 101 mmol/L (98-107); CREATININE 0.78 mg/dL (0.60-1.30); GLUCOSE,RANDOM 92 mg/dL (70-110); POTASSIUM 4.2 mmol/L (3.5-5.1); SODIUM SERUM 137 mmol/L (136-145); TOTAL PROTEIN, SERUM 7.2 g/dL (6.4-8.2); UREA NITROGEN, BLOOD 17 mg/dL (7-18)
[2018-11-09 11:05] VITALS: BP 120/70
[2018-11-09 11:09] LABS: GLOMERULAR FILTR. RATE CALC > 60 mL/min (>60)
== END 2018-11-09 15:50 | disposition home or self-care (01) | DRG 641 ==
LOC: EMS 19:26 → 5N 11-07 06:34
PROVIDERS: ADMIT Hospitalist; ATTEND Hospitalist
DX: R62.7 Adult failure to thrive (principal); E44.0 Moderate protein-calorie malnutrition; Z68.1 Body mass index [BMI] 19.9 or less, adult; F20.0 Paranoid schizophrenia; H91.3 Deaf nonspeaking, not elsewhere classified; Z59.0 Homelessness; Z88.0 Allergy status to penicillin; Z88.7 Allergy status to serum and vaccine; E11.9 Type 2 diabetes mellitus without complications; I10 Essential (primary) hypertension; Z85.42 Personal history of malignant neoplasm of other parts of uterus; F17.210 Nicotine dependence, cigarettes, uncomplicated; F31.9 Bipolar disorder, unspecified; H54.7 Unspecified visual loss
CPT/HCPCS: 87081; C9113; G0378; J7030

== ENCOUNTER 2018-11-10 16:58 | Inpatient (IN) | payer MEDICARE, MEDICAID ==
[~2018-11-10] VITALS: Ht 160 cm; Wt 46.2 kg
[2018-11-10] MEDS ORDERED: ONDANSETRON HCL 4 MG/2 ML VIAL IVP PRN ×2 (19:45→22:15)
[2018-11-10] MEDS ORDERED: ACETAMINOPHEN 325 MG TABLET PO PRN (19:45)
[2018-11-10 21:49] VITALS: BP 126/61
[2018-11-10] MEDS ORDERED: INSULIN LISPRO 100 UNITS/ML SQ PRN ×2 (22:15→22:45)
[2018-11-10] MEDS ORDERED: GLUCAGON,HUMAN RECOMBINANT 1 MG VIAL IM PRN (22:15)
[2018-11-10] MEDS ORDERED: ZOLPIDEM TARTRATE 5 MG TABLET PO PRN (22:15)
[2018-11-10] MEDS ORDERED: 0.9% SODIUM CHLORIDE 10 ML SYRINGE IVP PRN (22:15)
[2018-11-10] MEDS ORDERED: DEXTROSE 50%-WATER 25 GM/50 ML SYG IVP PRN (22:45)
[2018-11-10] MEDS: CloNIDine HCL 0.1 MG TABLET PO SCH (23:33)
[2018-11-11 04:14] VITALS: BP 106/63
[2018-11-11] MEDS: CloNIDine HCL 0.1 MG TABLET PO SCH ×3 (08:00→23:29)
[2018-11-11] MEDS: DOCUSATE SODIUM 100 MG CAPSULE PO SCH ×2 (09:00→20:18)
[2018-11-11] MEDS: PANTOPRAZOLE SODIUM 40 MG DR TABLET PO SCH (09:00)
[2018-11-11] MEDS: DULoxetine HCL 60 MG CAPSULE PO SCH (09:00)
[2018-11-11 15:26] LABS: EOSINOPHILS % (AUTO) 0.7 % (1.0-6.0); HEMATOCRIT 33.4 % (36-46); HEMOGLOBIN 10.7 g/dL (12.0-16.0); LYMPHOCYTES % (AUTO) 17.1 % (22.0-44.0); MEAN CORPUSCULAR HEMOGLOBIN 26.5 pg (26.0-34.0); MEAN CORPUSCULAR HGB CONC 31.9 G/dL (31.0-37.0); MEAN CORPUSCULAR VOLUME 83 fL (80-100); MONOCYTES # (AUTO) 0.8 K/uL (0.1-1.0); MONOCYTES % (AUTO) 7.1 % (2.0-9.0); NEUTROPHILS # (AUTO) 8.6 K/uL (1.8-7.7); NEUTROPHILS % (AUTO) 74.1 % (40.0-70.0); PLATELET COUNT (AUTO) 447 K/uL (150-450); RED BLOOD CELL COUNT(AUTO) 4.03 MIL/uL (4.00-5.20); RED CELL DISTRIBUTION WIDTH 15.7 % (11.5-14.5)
[2018-11-11 15:32] LABS: ANION GAP 11 mmol/L (8-16); CARBON DIOXIDE 27 mmol/L (22-29); CHLORIDE 103 mmol/L (98-107); CREATININE 0.75 mg/dL (0.60-1.30); GLUCOSE,RANDOM 110 mg/dL (70-110); POTASSIUM 3.3 mmol/L (3.5-5.1); SODIUM SERUM 141 mmol/L (136-145); UREA NITROGEN, BLOOD 15 mg/dL (7-18)
[2018-11-11 15:33] LABS: CALCIUM, TOTAL 8.9 mg/dL (8.8-10.5); GLOMERULAR FILTR. RATE CALC > 60 mL/min (>60)
[2018-11-11 20:10] VITALS: BP 143/91
[2018-11-11 20:52] LABS: GLUCOMETER DEV NAME(LOC) 5N.2; GLUCOSE,POINT OF CARE 100 MG/DL (70-110)
[2018-11-12 07:37] VITALS: BP 140/84
[2018-11-12] MEDS: CloNIDine HCL 0.1 MG TABLET PO SCH ×3 (08:00→23:34)
[2018-11-12] MEDS: PANTOPRAZOLE SODIUM 40 MG DR TABLET PO SCH (08:52)
[2018-11-12] MEDS: DOCUSATE SODIUM 100 MG CAPSULE PO SCH ×2 (08:52→19:58)
[2018-11-12] MEDS: DULoxetine HCL 60 MG CAPSULE PO SCH (08:52)
[2018-11-12 10:57] VITALS: BP 136/80
[2018-11-12 19:36] VITALS: BP 132/72
[2018-11-13 07:58] VITALS: BP 118/64
[2018-11-13] MEDS: CloNIDine HCL 0.1 MG TABLET PO SCH ×2 (08:00→16:00)
[2018-11-13] MEDS: PANTOPRAZOLE SODIUM 40 MG DR TABLET PO SCH (08:59)
[2018-11-13] MEDS: DOCUSATE SODIUM 100 MG CAPSULE PO SCH ×2 (08:59→21:00)
[2018-11-13] MEDS: DULoxetine HCL 60 MG CAPSULE PO SCH (08:59)
[2018-11-13 11:59] VITALS: BP 130/53
[2018-11-13 15:44] VITALS: BP 126/60
[2018-11-13] MEDS: MULTIVITAMINS WITH MINERALS, THERAPEUTIC TABLET PO SCH (16:30)
[2018-11-13 20:57] VITALS: BP 129/75
[2018-11-13 23:47] VITALS: BP 112/72
[2018-11-14] MEDS: CloNIDine HCL 0.1 MG TABLET PO SCH ×2 (08:00)
[2018-11-14] MEDS: DOCUSATE SODIUM 100 MG CAPSULE PO SCH (09:00)
[2018-11-14] MEDS: PANTOPRAZOLE SODIUM 40 MG DR TABLET PO SCH (09:00)
[2018-11-14] MEDS: DULoxetine HCL 60 MG CAPSULE PO SCH (09:00)
[2018-11-14] MEDS: MULTIVITAMINS WITH MINERALS, THERAPEUTIC TABLET PO SCH (09:00)
== END 2018-11-14 13:30 | disposition home or self-care (01) | DRG 155 ==
LOC: EMS 17:00 → 5N 20:00
PROVIDERS: ADMIT Internal Medicine; ATTEND Internal Medicine
DX: H91.3 Deaf nonspeaking, not elsewhere classified (principal); F20.0 Paranoid schizophrenia; R64 Cachexia; Z68.1 Body mass index [BMI] 19.9 or less, adult; E11.9 Type 2 diabetes mellitus without complications; I10 Essential (primary) hypertension; F31.9 Bipolar disorder, unspecified; H54.7 Unspecified visual loss; N93.9 Abnormal uterine and vaginal bleeding, unspecified; Z59.0 Homelessness; Z85.42 Personal history of malignant neoplasm of other parts of uterus; Z87.891 Personal history of nicotine dependence; Z91.19 Patient's noncompliance with other medical treatment and regimen; Z88.0 Allergy status to penicillin
CPT/HCPCS: 83735; G0378

== ENCOUNTER 2018-12-25 10:46 | Inpatient (IN) | payer MEDICARE, MEDICAID ==
[~2018-12-25] VITALS: Ht 160 cm; Wt 46.9 kg
[~2018-12-25 10:46] MED LIST changes: -PROV5 PO; -[UNRECOGNIZED DRUG - CODE] PO
[2018-12-25 11:09] LABS: GLUCOSE,POINT OF CARE 87 MG/DL (70-110)
[2018-12-25] MEDS ORDERED: HALOPERIDOL LACTATE 5 MG/ML VIAL IVP ONE (12:45)
[2018-12-25] MEDS ORDERED: DiphenhydrAMINE HCL 50 MG/ML VIAL IVP ONE (12:45)
[2018-12-25] MEDS ORDERED: LORazepam 2 MG/ML VIAL IVP ONE (12:45)
[2018-12-25] MEDS ORDERED: LORazepam 2 MG/ML VIAL IM ONE ×2 (13:30→15:45)
[2018-12-25] MEDS ORDERED: DiphenhydrAMINE HCL 50 MG/ML VIAL IM ONE ×2 (13:30→15:45)
[2018-12-25] MEDS ORDERED: HALOPERIDOL LACTATE 5 MG/ML VIAL IM ONE (13:30)
[2018-12-25 15:21] LABS: BASOPHILS % (AUTO) 0.4 % (0.0-2.0); EOSINOPHILS % (AUTO) 0.5 % (1.0-6.0); HEMATOCRIT 36.6 % (36-46); HEMOGLOBIN 11.5 g/dL (12.0-16.0); LYMPHOCYTES # (AUTO) 2.2 K/uL (1.0-4.8); LYMPHOCYTES % (AUTO) 15.6 % (22.0-44.0); MEAN CORPUSCULAR HEMOGLOBIN 25.2 pg (26.0-34.0); MEAN CORPUSCULAR HGB CONC 31.4 G/dL (31.0-37.0); MEAN CORPUSCULAR VOLUME 80 fL (80-100); MONOCYTES # (AUTO) 1.1 K/uL (0.1-1.0); MONOCYTES % (AUTO) 7.9 % (2.0-9.0); NEUTROPHILS # (AUTO) 10.9 K/uL (1.8-7.7); NEUTROPHILS % (AUTO) 75.6 % (40.0-70.0); PLATELET COUNT (AUTO) 509 K/uL (150-450); RED BLOOD CELL COUNT(AUTO) 4.55 MIL/uL (4.00-5.20); RED CELL DISTRIBUTION WIDTH 16.1 % (11.5-14.5)
[2018-12-25 15:40] LABS: ANION GAP 9 mmol/L (8-16); CALCIUM, TOTAL 8.8 mg/dL (8.8-10.5); CARBON DIOXIDE 28 mmol/L (22-29); CHLORIDE 102 mmol/L (98-107); CREATININE 0.81 mg/dL (0.60-1.30); GLUCOSE,RANDOM 103 mg/dL (70-110); POTASSIUM 3.5 mmol/L (3.5-5.1); SODIUM SERUM 139 mmol/L (136-145); UREA NITROGEN, BLOOD 11 mg/dL (7-18)
[2018-12-25 15:41] LABS: GLOMERULAR FILTR. RATE CALC > 60 mL/min (>60)
[2018-12-25 15:46] LABS: ALANINE AMINOTRANSFERASE 10 U/L (12-78); ALBUMIN 3.4 g/dL (3.4-5.0); ALKALINE PHOSPHATASE 108 U/L (46-116); ASPARTATE AMINOTRANSFERASE 20 U/L (15-37); BILIRUBIN,TOTAL 0.3 mg/dL (0.1-1.0); TOTAL PROTEIN, SERUM 7.6 g/dL (6.4-8.2)
[2018-12-25 20:51] LABS: APPEARANCE,URINE CLEAR (CLEAR); BILIRUBIN,URINE NEGATIVE (NEGATIVE); GLUCOSE, URINE (UA) NEGATIVE (NEGATIVE); KETONES,URINE NEGATIVE (NEGATIVE); LEUKOCYTE ESTERASE ,URINE NEGATIVE (NEGATIVE); NITRATE,URINE NEGATIVE (NEGATIVE); OCCULT BLOOD,URINE NEGATIVE (NEGATIVE); PROTEIN,URINE NEGATIVE (NEGATIVE); UROBILINOGEN,URINE 0.2 mg/dL (<=1.0)
[2018-12-25 20:56] LABS: AMPHET/METH SCREEN,URINE NEGATIVE (NEGATIVE); BARBITURATE SCREEN, URINE NEGATIVE (NEGATIVE); BENZODIAZEPINES SCREEN,URINE NEGATIVE (NEGATIVE); CANNABINOID SCREEN,URINE NEGATIVE (NEGATIVE); COCAINE SCREEN,URINE NEGATIVE (NEGATIVE); METHADONE SCREEN, URINE NEGATIVE (NEGATIVE); OPIATE SCREEN,URINE NEGATIVE (NEGATIVE)
[2018-12-25 20:57] LABS: PHENCYCLIDINE SCREEN,URINE NEGATIVE (NEGATIVE)
[2018-12-26] MEDS ORDERED: ACETAMINOPHEN 325 MG TABLET PO PRN ×2 (04:15→09:30)
[2018-12-26] MEDS ORDERED: ONDANSETRON HCL 4 MG/2 ML VIAL IVP PRN ×2 (04:15→09:30)
[2018-12-26] MEDS ORDERED: 0.9% SODIUM CHLORIDE 10 ML SYRINGE IVP PRN ×2 (04:15→09:30)
[2018-12-26] MEDS ORDERED: INSULIN LISPRO 100 UNITS/ML SQ PRN (09:30)
[2018-12-26] MEDS ORDERED: ZOLPIDEM TARTRATE 5 MG TABLET PO PRN (09:30)
[2018-12-26] MEDS ORDERED: GLUCAGON,HUMAN RECOMBINANT 1 MG VIAL IM PRN (09:30)
[2018-12-26] MEDS ORDERED: DEXTROSE 50%-WATER 25 GM/50 ML SYG IVP PRN (09:45)
[2018-12-26] MEDS: PANTOPRAZOLE SODIUM 40 MG/VIAL IVP SCH (10:25)
[2018-12-26] MEDS: DULoxetine HCL 60 MG CAPSULE PO SCH (10:25)
[2018-12-26] MEDS: CloNIDine HCL 0.1 MG TABLET PO SCH (10:25)
[2018-12-26 10:39] LABS: GLUCOSE,POINT OF CARE 92 MG/DL (70-110)
[2018-12-26] MEDS: HALOPERIDOL 5 MG TABLET PO SCH (20:59)
[2018-12-26] MEDS: TRIHEXYPHENIDYL HCL 2 MG TABLET PO SCH (20:59)
[2018-12-27] MEDS ORDERED: DULoxetine HCL 60 MG CAPSULE PO SCH (09:00)
[2018-12-27] MEDS: PANTOPRAZOLE SODIUM 40 MG/VIAL IVP SCH (10:39)
[2018-12-27] MEDS: TRIHEXYPHENIDYL HCL 2 MG TABLET PO SCH ×3 (10:39→22:26)
[2018-12-27] MEDS: CloNIDine HCL 0.1 MG TABLET PO SCH (10:39)
[2018-12-27] MEDS: DULoxetine HCL 60 MG CAPSULE PO SCH (10:39)
[2018-12-27 18:02] VITALS: BP 108/65
[2018-12-27] MEDS: HALOPERIDOL 5 MG TABLET PO SCH (22:26)
[2018-12-28 06:09] LABS: GLUCOMETER DEV NAME(LOC) 5N.2; GLUCOSE,POINT OF CARE 93 MG/DL (70-110)
[2018-12-28 08:37] VITALS: BP 118/70
[2018-12-28] MEDS: TRIHEXYPHENIDYL HCL 2 MG TABLET PO SCH ×3 (08:45→21:56)
[2018-12-28] MEDS: CloNIDine HCL 0.1 MG TABLET PO SCH (08:45)
[2018-12-28] MEDS: DULoxetine HCL 60 MG CAPSULE PO SCH (08:46)
[2018-12-28] MEDS: PANTOPRAZOLE SODIUM 40 MG/VIAL IVP SCH (08:46)
[2018-12-28 11:23] VITALS: BP 109/67
[2018-12-28 16:13] VITALS: BP 106/65
[2018-12-28 21:24] VITALS: BP 118/74
[2018-12-28] MEDS: HALOPERIDOL 5 MG TABLET PO SCH (21:56)
[2018-12-29 04:40] VITALS: BP 110/72
[2018-12-29] MEDS: TRIHEXYPHENIDYL HCL 2 MG TABLET PO SCH ×4 (08:27→20:58)
[2018-12-29] MEDS: DULoxetine HCL 60 MG CAPSULE PO SCH ×2 (08:27→08:32)
[2018-12-29] MEDS: PANTOPRAZOLE SODIUM 40 MG/VIAL IVP SCH ×2 (08:27→08:32)
[2018-12-29] MEDS: CloNIDine HCL 0.1 MG TABLET PO SCH ×2 (08:28→08:32)
[2018-12-29 11:46] VITALS: BP 111/66
[2018-12-29 15:28] VITALS: BP 139/74
[2018-12-29 16:07] VITALS: BP 117/57
[2018-12-29] MEDS: HALOPERIDOL 5 MG TABLET PO SCH (20:58)
[2018-12-29 23:38] VITALS: BP 103/61
[2018-12-30 04:16] VITALS: BP 115/62
[2018-12-30 06:50] LABS: GLUCOMETER DEV NAME(LOC) 5N.1; GLUCOSE,POINT OF CARE 207 MG/DL (70-110)
[2018-12-30] MEDS: PANTOPRAZOLE SODIUM 40 MG/VIAL IVP SCH (09:00)
[2018-12-30] MEDS: CloNIDine HCL 0.1 MG TABLET PO SCH (09:00)
[2018-12-30] MEDS: HALOPERIDOL 5 MG TABLET PO SCH ×2 (09:00→20:23)
[2018-12-30] MEDS: TRIHEXYPHENIDYL HCL 2 MG TABLET PO SCH ×3 (09:00→20:23)
[2018-12-30] MEDS: DULoxetine HCL 60 MG CAPSULE PO SCH (09:00)
[2018-12-30 11:28] VITALS: BP 136/65
[2018-12-30 17:21] VITALS: BP 119/68
[2018-12-30 23:24] LABS: GLUCOMETER DEV NAME(LOC) 5N.2; GLUCOSE,POINT OF CARE 127 MG/DL (70-110)
[2018-12-31] MEDS: CloNIDine HCL 0.1 MG TABLET PO SCH (09:00)
[2018-12-31 09:10] VITALS: BP 104/66
[2018-12-31] MEDS: HALOPERIDOL 5 MG TABLET PO SCH ×2 (09:11→21:00)
[2018-12-31] MEDS: PANTOPRAZOLE SODIUM 40 MG DR TABLET PO SCH (09:11)
[2018-12-31] MEDS: TRIHEXYPHENIDYL HCL 2 MG TABLET PO SCH ×3 (09:11→21:00)
[2018-12-31] MEDS: DULoxetine HCL 60 MG CAPSULE PO SCH (09:11)
[2018-12-31 19:15] VITALS: BP 120/61
[2019-01-01 02:04] LABS: GLUCOMETER DEV NAME(LOC) 5N.1; GLUCOSE,POINT OF CARE 123 MG/DL (70-110)
[2019-01-01] MEDS: DULoxetine HCL 60 MG CAPSULE PO SCH (08:42)
[2019-01-01] MEDS: HALOPERIDOL 5 MG TABLET PO SCH ×3 (08:42→22:22)
[2019-01-01] MEDS: PANTOPRAZOLE SODIUM 40 MG DR TABLET PO SCH (08:42)
[2019-01-01] MEDS: TRIHEXYPHENIDYL HCL 2 MG TABLET PO SCH ×4 (08:42→22:22)
[2019-01-01] MEDS: CloNIDine HCL 0.1 MG TABLET PO SCH (08:45)
[2019-01-01 11:37] VITALS: BP 123/60
[2019-01-01 16:10] VITALS: BP 118/63
[2019-01-02] MEDS: HALOPERIDOL 5 MG TABLET PO SCH ×2 (09:08→20:38)
[2019-01-02] MEDS: PANTOPRAZOLE SODIUM 40 MG DR TABLET PO SCH (09:08)
[2019-01-02] MEDS: TRIHEXYPHENIDYL HCL 2 MG TABLET PO SCH ×3 (09:08→20:38)
[2019-01-02] MEDS: DULoxetine HCL 60 MG CAPSULE PO SCH (09:08)
[2019-01-02] MEDS: CloNIDine HCL 0.1 MG TABLET PO SCH (09:08)
[2019-01-02 12:34] LABS: GLUCOMETER DEV NAME(LOC) 5N.2; GLUCOSE,POINT OF CARE 108 MG/DL (70-110)
[2019-01-02 20:44] VITALS: BP 103/48
[2019-01-02 21:54] LABS: GLUCOMETER DEV NAME(LOC) 5N.1; GLUCOSE,POINT OF CARE 134 MG/DL (70-110)
[2019-01-03] MEDS: HALOPERIDOL 5 MG TABLET PO SCH ×2 (10:24→20:40)
[2019-01-03] MEDS: CloNIDine HCL 0.1 MG TABLET PO SCH (10:24)
[2019-01-03] MEDS: DULoxetine HCL 60 MG CAPSULE PO SCH (10:24)
[2019-01-03] MEDS: TRIHEXYPHENIDYL HCL 2 MG TABLET PO SCH ×3 (10:24→20:40)
[2019-01-03] MEDS: PANTOPRAZOLE SODIUM 40 MG DR TABLET PO SCH (10:24)
[2019-01-03 14:40] VITALS: BP 104/60
[2019-01-03 14:54] LABS: BASOPHILS % (AUTO) 0.7 % (0.0-2.0); EOSINOPHILS % (AUTO) 0.4 % (1.0-6.0); HEMATOCRIT 37.4 % (36-46); HEMOGLOBIN 11.8 g/dL (12.0-16.0); LYMPHOCYTES # (AUTO) 2.1 K/uL (1.0-4.8); LYMPHOCYTES % (AUTO) 16.7 % (22.0-44.0); MEAN CORPUSCULAR HEMOGLOBIN 25.7 pg (26.0-34.0); MEAN CORPUSCULAR HGB CONC 31.6 G/dL (31.0-37.0); MEAN CORPUSCULAR VOLUME 81 fL (80-100); MONOCYTES % (AUTO) 8.1 % (2.0-9.0); NEUTROPHILS # (AUTO) 9.4 K/uL (1.8-7.7); NEUTROPHILS % (AUTO) 74.1 % (40.0-70.0); PLATELET COUNT (AUTO) 391 K/uL (150-450); RED CELL DISTRIBUTION WIDTH 15.7 % (11.5-14.5)
[2019-01-03 14:57] LABS: ANION GAP 5 mmol/L (8-16); CALCIUM, TOTAL 8.7 mg/dL (8.8-10.5); CARBON DIOXIDE 33 mmol/L (22-29); CHLORIDE 100 mmol/L (98-107); CREATININE 0.87 mg/dL (0.60-1.30); GLOMERULAR FILTR. RATE CALC > 60 mL/min (>60); GLUCOSE,RANDOM 106 mg/dL (70-110); POTASSIUM 3.9 mmol/L (3.5-5.1); SODIUM SERUM 138 mmol/L (136-145); UREA NITROGEN, BLOOD 15 mg/dL (7-18)
[2019-01-03 15:03] LABS: ALANINE AMINOTRANSFERASE 14 U/L (12-78); ALKALINE PHOSPHATASE 89 U/L (46-116); ASPARTATE AMINOTRANSFERASE 13 U/L (15-37); BILIRUBIN,TOTAL 0.3 mg/dL (0.1-1.0); TOTAL PROTEIN, SERUM 7.2 g/dL (6.4-8.2)
[2019-01-03 17:09] LABS: GLUCOMETER DEV NAME(LOC) 5N.2; GLUCOSE,POINT OF CARE 103 MG/DL (70-110)
[2019-01-03 20:52] VITALS: BP 120/59
[2019-01-03 22:29] LABS: GLUCOMETER DEV NAME(LOC) 5N.2; GLUCOSE,POINT OF CARE 97 MG/DL (70-110)
[2019-01-04 03:19] VITALS: BP 116/62
[2019-01-04] MEDS: TRIHEXYPHENIDYL HCL 2 MG TABLET PO SCH ×3 (07:49→20:04)
[2019-01-04] MEDS: PANTOPRAZOLE SODIUM 40 MG DR TABLET PO SCH (07:50)
[2019-01-04] MEDS: HALOPERIDOL 5 MG TABLET PO SCH ×2 (07:50→20:04)
[2019-01-04] MEDS: DULoxetine HCL 60 MG CAPSULE PO SCH (07:54)
[2019-01-04 08:04] VITALS: BP 101/50
[2019-01-04 12:01] VITALS: BP 110/54
[2019-01-04] MEDS: CloNIDine HCL 0.1 MG TABLET PO SCH (12:50)
[2019-01-04 16:13] VITALS: BP 108/56
[2019-01-04 19:10] VITALS: BP 112/59
[2019-01-04 23:46] VITALS: BP 112/59
[2019-01-05] MEDS: HALOPERIDOL 5 MG TABLET PO SCH ×4 (09:00→21:57)
[2019-01-05] MEDS: PANTOPRAZOLE SODIUM 40 MG DR TABLET PO SCH (09:00)
[2019-01-05] MEDS: CloNIDine HCL 0.1 MG TABLET PO SCH (09:00)
[2019-01-05] MEDS: DULoxetine HCL 60 MG CAPSULE PO SCH ×2 (09:00→10:23)
[2019-01-05] MEDS: TRIHEXYPHENIDYL HCL 2 MG TABLET PO SCH ×5 (09:00→21:57)
[2019-01-05 15:30] VITALS: BP 109/57
[2019-01-05 19:35] VITALS: BP 118/58
[2019-01-06] MEDS: CloNIDine HCL 0.1 MG TABLET PO SCH (09:00)
[2019-01-06] MEDS: TRIHEXYPHENIDYL HCL 2 MG TABLET PO SCH ×2 (09:00→15:05)
[2019-01-06] MEDS: PANTOPRAZOLE SODIUM 40 MG DR TABLET PO SCH (09:00)
[2019-01-06] MEDS: DULoxetine HCL 60 MG CAPSULE PO SCH (09:00)
[2019-01-06] MEDS: HALOPERIDOL 5 MG TABLET PO SCH (09:00)
== END 2019-01-06 17:58 | disposition home or self-care (01) | DRG 641 ==
LOC: EMS 10:49 → 5N 12-27 14:18
PROVIDERS: ADMIT Internal Medicine; ATTEND Internal Medicine
DX: R62.7 Adult failure to thrive (principal); F20.0 Paranoid schizophrenia; G25.9 Extrapyramidal and movement disorder, unspecified; F31.9 Bipolar disorder, unspecified; E11.9 Type 2 diabetes mellitus without complications; I10 Essential (primary) hypertension; H91.3 Deaf nonspeaking, not elsewhere classified; F94.0 Selective mutism; D72.829 Elevated white blood cell count, unspecified; F17.210 Nicotine dependence, cigarettes, uncomplicated; H54.7 Unspecified visual loss; Z59.0 Homelessness; Z78.1 Physical restraint status; Z85.42 Personal history of malignant neoplasm of other parts of uterus; Z91.19 Patient's noncompliance with other medical treatment and regimen
CPT/HCPCS: 51701; 70450; C9113; G0378; G0480; J1200; J1630; J2060

== ENCOUNTER 2019-01-20 15:41 | Emergency (ER) | payer MEDICARE, MEDICAID ==
[~2019-01-20] VITALS: Ht 157.5 cm; Wt 46.0 kg
[2019-01-20 16:18] LABS: BASOPHILS % (AUTO) 0.9 % (0.0-2.0); EOSINOPHILS % (AUTO) 0.4 % (1.0-6.0); HEMATOCRIT 34.1 % (36-46); LYMPHOCYTES # (AUTO) 1.6 K/uL (1.0-4.8); LYMPHOCYTES % (AUTO) 12.5 % (22.0-44.0); MEAN CORPUSCULAR HEMOGLOBIN 25.5 pg (26.0-34.0); MEAN CORPUSCULAR HGB CONC 32.3 G/dL (31.0-37.0); MEAN CORPUSCULAR VOLUME 79 fL (80-100); MONOCYTES # (AUTO) 1.2 K/uL (0.1-1.0); MONOCYTES % (AUTO) 9.3 % (2.0-9.0); NEUTROPHILS # (AUTO) 9.7 K/uL (1.8-7.7); NEUTROPHILS % (AUTO) 76.9 % (40.0-70.0); PLATELET COUNT (AUTO) 462 K/uL (150-450); RED BLOOD CELL COUNT(AUTO) 4.31 MIL/uL (4.00-5.20); RED CELL DISTRIBUTION WIDTH 16.2 % (11.5-14.5)
[2019-01-20 16:40] LABS: ALANINE AMINOTRANSFERASE 10 U/L (12-78); ALBUMIN 3.1 g/dL (3.4-5.0); ALKALINE PHOSPHATASE 87 U/L (46-116); ANION GAP 11 mmol/L (8-16); ASPARTATE AMINOTRANSFERASE 17 U/L (15-37); BILIRUBIN,TOTAL 0.3 mg/dL (0.1-1.0); CALCIUM, TOTAL 8.7 mg/dL (8.8-10.5); CARBON DIOXIDE 26 mmol/L (22-29); CHLORIDE 103 mmol/L (98-107); CREATININE 0.65 mg/dL (0.60-1.30); GLUCOSE,RANDOM 99 mg/dL (70-110); SODIUM SERUM 140 mmol/L (136-145); UREA NITROGEN, BLOOD 12 mg/dL (7-18)
[2019-01-20 16:45] LABS: GLOMERULAR FILTR. RATE CALC > 60 mL/min (>60); POTASSIUM 2.9 mmol/L (3.5-5.1)
[2019-01-20] MEDS ORDERED: POTASSIUM CHLORIDE 20 MEQ ER TABLET PO ONE (17:15)
[2019-01-20] MEDS ORDERED: ONDANSETRON HCL 4 MG TABLET PO ONE (20:45)
[2019-01-20] MEDS ORDERED: BISMUTH SUBSALICYLATE 524 MG/30 ML SUSPENSION UDCUP PO ONE (20:45)
[2019-01-20] MEDS ORDERED: MAGNESIUM CHLORIDE 64 MG ER TABLET PO ONE (22:45)
[2019-01-21 05:15] VITALS: BP 129/72
== END 2019-01-21 07:47 | disposition home or self-care (01) ==
LOC: EMS 15:41
DX: F20.0 Paranoid schizophrenia (principal); E87.6 Hypokalemia; E83.42 Hypomagnesemia; E46 Unspecified protein-calorie malnutrition; Z68.1 Body mass index [BMI] 19.9 or less, adult; H91.3 Deaf nonspeaking, not elsewhere classified; F31.9 Bipolar disorder, unspecified; E11.9 Type 2 diabetes mellitus without complications; I10 Essential (primary) hypertension; F17.210 Nicotine dependence, cigarettes, uncomplicated; Z88.0 Allergy status to penicillin; Z88.7 Allergy status to serum and vaccine
CPT/HCPCS: 36415; 80053; 83735; 85025; 99285; 99406; G0480